=== PATIENT | female | born 1950 | race Caucasian/White ===

== ENCOUNTER 2024-04-03 10:42 | Emergency (ER) | payer OTHER, SELFPAY ==
--- NOTE | ~2024-04-03 | XR_ITS ---
EXAMINATION: XR foot LT min 3V DATE: 04/03/2024 11:24 INDICATION: Left foot pain and swelling at the fifth toe TECHNIQUE: Dorsoplantar, two oblique and lateral views of the left foot were obtained. COMPARISON: None. FINDINGS: 10 degrees lateral and 30 degrees dorsal angulation and one cortical width medial displacement of a t ransverse fracture at the proximal metadiaphyseal region of the left fifth proximal phalanx. Alignmen t is otherwise normal. No other fractures identified. 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 Moderate-sized plantar calcaneal spur. IMPRESSION: 1. Minimally displaced, mildly angulated extra articular fracture near the base of the left fifth pro ximal phalanx. Reviewed, dictated and finalized at location B. IMPRESSION: 1. Minimally displaced, mildly angulated extra articular fracture near the base of the left fifth proximal phalanx.
[2024-04-03 10:50] VITALS: BP 148/66; PULSE 88; RESP 20; TEMP 36.8; O2SAT 95
--- NOTE | 2024-04-03 10:56 | ED.LOWEXIN ---
HPI - Extremity Injury (Lower) General Chief Complaint: Extremity Injury, Lower Stated Complaint: Left pinky toe injury Time Seen by Provider: 04/03/24 10:56 Source: patient, RN notes reviewed and old records reviewed Mode of arrival: ambulatory Limitations: no limitations History of Present Illness HPI Narrative: 74-year-old female to Express Care complaint of left pinky toe pain for 1 day. Patient states that yesterday she kicked something with her left foot in her 's office and had acute onset of pain. Patient unsure what she kicked at that time. Patient endorsing swelling and redness well as pain to digit left foot. Patient denies numbness, tingling, pertinent medical history, allergies. Related Data Home Medications Medication Instructions Recorded Confirmed amlodipine 10 mg tablet 10 mg PO DAILY 04/03/24 04/03/24 atorvastatin 20 mg tablet 20 mg PO DAILY 04/03/24 04/03/24 bupropion HCl 300 mg 24 hr tablet, 300 mg PO DAILY 04/03/24 04/03/24 extended release fluticasone fur. 100 mcg-umeclid 1 inh inhalation DAILY 04/03/24 04/03/24 62.5 mcg-vilant 25 mcg inhalat.powder (Trelegy Ellipta) levothyroxine 75 mcg tablet 75 mcg PO DAILY 04/03/24 04/03/24 losartan 100 mg tablet 100 mg PO DAILY 04/03/24 04/03/24 Allergies Allergy/AdvReac Type Severity Reaction Status Date / Time No Known Allergies Allergy Verified 04/03/24 11:03 Review of Systems Review of Systems: All systems reviewed & are unremarkable except as noted in HPI and below Constitutional: Constitutional: Reports no additional constitutional complaints Eyes: Eyes: Reports no additional eye complaints ENT: Reports system reviewed and no additional complaints, except as documented Cardiovascular: Cardiovascular: Reports no additional cardiovascular complaints, Denies chest pain and Denies dyspnea Respiratory: Respiratory: Reports no additional respiratory complaints, Denies cough and Denies dyspnea Musculoskeletal: Musculoskeletal: Reports as per HPI, Reports arthralgias, Reports joint swelling and Reports limited range of motion Integumentary/Breasts: Comments: Fifth digit left foot Neurologic: Reports as per HPI, Denies numbness, Denies Sensory deficit (Neuro) and Denies tingling Psychiatric: Psychiatric: Reports no additional psychiatric complaints PMFSH Comments At the time of my signature, I reviewed and agree with the nursing past medical, surgical, social, and family history. There is no relevant family history pertinent to the patient complaint. Exam Const: General: cooperative, healthy appearing, no acute distress, alert, uncomfortable and well nourished Nutritional Appearance: well nourished Orientation/consciousness: patient oriented x3 Limitations: no limitations HENMT: Head: normal to inspection Ears: external ears normal Face/Nose/Sinus: Normal external nose present, Normal nares present, normal facial exam, No erythema and No edema Face and sinus: normal facial exam, no erythema and no edema Mouth: Yes Normal oral and palatal mucosa present Eyes: General: appearance normal, both eyes and all related structures Neck: Neck: normal visual inspection, full ROM and no meningeal signs Lymphatic: no lymphadenopathy noted and no lymphedema noted Chest: Chest palpation & inspection: normal inspection of the chest Resp: Effort & Inspection: normal respiratory effort and able to speak in complete sentences Auscultation: clear to auscultation bilaterally Cardio: Jugular venous distension: no JVD Rate: regular rate Rhythm: regular rhythm Back/Spine/Pelvis: Cervical Spine: cervical ROM normal Skin: General skin exam: normal color, no rashes or lesions noted and turgor normal Neuro: General: patient oriented x3, gait normal, moves all extremities and no meningeal signs Speech: normal speech Gait exam (Neuro): Normal gait present Extrem: General: capillary refill normal and normal exam except as noted Le
[2024-04-03 11:03] VITALS: BP 148/66; PULSE 88; RESP 20; TEMP 36.8; O2SAT 95
== END 2024-04-03 11:37 | disposition home or self-care (01) ==
PROVIDERS: Emergency Provider Nurse Practitioner Family
DX: S92.512A Displaced fracture of proximal phalanx of left lesser toe(s), initial encounter for closed fracture (principal); W22.8XXA Striking against or struck by other objects, initial encounter; E78.00 Pure hypercholesterolemia, unspecified; I10 Essential (primary) hypertension; J44.9 Chronic obstructive pulmonary disease, unspecified; E03.9 Hypothyroidism, unspecified
CPT/HCPCS: 73630; 99214; G0463

== ENCOUNTER 2024-10-24 12:05 | Emergency (ER) | payer OTHER, SELFPAY ==
--- NOTE | 2024-10-24 12:14 | ED.FEMALEGU ---
HPI - Female Genitourinary General Chief complaint: Urogenital-Female Stated complaint: poss uti Time Seen by Provider: 10/24/24 12:27 Source: patient and RN notes reviewed Mode of arrival: ambulatory Limitations: no limitations History of Present Illness HPI Narrative: 74-year-old female presents with concern for 1 day history of urine frequency, urgency, dysuria. She reports she took 1 leftover Bactrim pill today. She denies fever, body aches, chills, sweats, abdominal pain, nausea, vomiting. MD elicited complaint: UTI Related Data Home Medications Medication Instructions Recorded Confirmed amlodipine 10 mg tablet 10 mg PO DAILY 04/03/24 04/03/24 atorvastatin 20 mg tablet 20 mg PO DAILY 04/03/24 04/03/24 bupropion HCl 300 mg 24 hr tablet, 300 mg PO DAILY 04/03/24 04/03/24 extended release fluticasone fur. 100 mcg-umeclid 1 inh inhalation DAILY 04/03/24 04/03/24 62.5 mcg-vilant 25 mcg inhalat.powder (Trelegy Ellipta) levothyroxine 75 mcg tablet 75 mcg PO DAILY 04/03/24 04/03/24 losartan 100 mg tablet 100 mg PO DAILY 04/03/24 04/03/24 Allergies Allergy/AdvReac Type Severity Reaction Status Date / Time No Known Allergies Allergy Verified 04/03/24 11:03 Review of Systems Review of Systems: CONSTITUTIONAL: Denies malaise, chills, sweats, or fever. CARDIOVASCULAR: Denies chest pain, palpitations, or edema. RESPIRATORY: Denies cough or dyspnea. GASTROINTESTINAL: Denies abdominal pain, nausea, vomiting, diarrhea GENITOURINARY: Reports dysuria, frequency, urgency Denies flank pain or hematuria. SKIN: Denies rash or itching. MUSCULOSKELETAL: Denies back pain or myalgia. All systems reviewed & are unremarkable except as noted in HPI and below PMFSH Comments At time of signature, agree with nursing past medical, surgical, social and family history. There is no relevant family history pertinent to the presenting complaint Exam Narrative: GENERAL: Well-appearing, well-nourished, and in no acute distress. HEAD: Normocephalic. EYES: PERRLA, conjunctivae clear. NECK: Supple. No lymphadenopathy CHEST: Clear to auscultation. No respiratory distress. HEART: Regular rate and rhythm. ABDOMEN: Soft, nontender upon palpation, nondistended, normal active bowel sounds, no palpable or pulsatile masses, no guarding. No CVA tenderness SKIN: Warm, dry, no rash. NEURO: Alert and oriented x3. PSYCH: Normal mood and affect Course Course Emergency Course: Patient is aware of diagnosis, understands and agrees to treatment plan. Anticipatory guidance given. Patient agrees to follow-up as directed and is aware of reasons to seek care at the emergency department. Portions of this record may have been created with voice recognition software Level of Care: Express Care Visit Vital Signs Vital signs: Reviewed. MDM - Female Genitourinary MDM Narrative Medical decision making narrative: Exam findings and UA show no acute concerns or changes; patient is non-toxic appearing and is in no distress. Patient is appropriate for outpatient treatment and follow-up. Differential Diagnosis Differential diagnosis: Likely urinary tract infection and cystitis Critical Care Time Critical Care Time Critical Care Time: No Discharge Plan Discharge Clinical Impression: Urinary tract infection Patient Disposition: Home, Self-Care Condition: Stable Instructions: Antibiotic Form, Urinary Tract Infection in Older Adults (ED) Additional Instructions: We will send a urine culture to the lab; if the culture identifies an organism that the prescribed antibiotic will not treat, you will receive a phone call from an urgent care staff member and an appropriate antibiotic will be prescribed. -Your symptoms should begin to improve within a day of starting antibiotics. But you should finish all the antibiotic pills you get. Otherwise your infection might come back. -Also recommend: increase water intake. Tylenol/ibuprofen as needed for pain or fever -Follow-up with your primary care provider for urine recheck or seek ER visit if condition worsens with high fever, nausea, vomiting and severe back pain. Prescriptions: New ciprofloxacin HCl 500 mg tablet 500 mg PO Q12H 5 Days Qty: 10 0RF No Action losartan 100 mg tablet 100 mg PO DAILY levothyroxine 75 mcg tablet 75 mcg PO DAILY bupropion HCl 300 mg tablet extended release 24 hr 300 mg PO DAILY atorvastatin 20 mg tablet 20 mg PO DAILY amlodipine 10 mg tablet 10 mg PO DAILY Trelegy Ellipta 100-62.5-25 mcg blister with device 1 inh INHALATION DAILY Follow-up/Referrals: Otilio,Iam James MD [Primary Care Provider] - Time of Disposition: 12:36
[2024-10-24 12:22] VITALS: BP 163/66; PULSE 94; RESP 18; TEMP 36.9; O2SAT 94
[2024-10-24 12:36] LABS: EDUAAPPEAR Cloudy; EDUABILI 1+ (Negative); EDUABLOOD 3+ (Negative); EDUACOLOR1 Amber; EDUAGLUCOSE Negative (Negative); EDUAKETONE Negative (Negative); EDUALEUKO 3+ (Negative); EDUANITRATE Negative (Negative); EDUAPH 6.5; EDUAPROTEIN 3+ (Negative); EDUAUROBILI 0.2
== END 2024-10-24 12:47 | disposition home or self-care (01) ==
PROVIDERS: Emergency Provider Nurse Practitioner; PCP Family Medicine
DX: N39.0 Urinary tract infection, site not specified (principal); E78.00 Pure hypercholesterolemia, unspecified; I10 Essential (primary) hypertension; J44.9 Chronic obstructive pulmonary disease, unspecified; Z86.711 Personal history of pulmonary embolism; E03.9 Hypothyroidism, unspecified
CPT/HCPCS: 81003; 87086; 99213; G0463

== ENCOUNTER 2025-04-16 14:32 | Emergency (ER) | payer OTHER, SELFPAY ==
--- OUTSIDE RECORDS SUMMARY | 2025-04-16 14:39 | XMS_ITS | Encounter Summary ---
Author Organization [facility] Address [address] [place] [address] Care Team Providers Care Product Safety Coordinator Name Role Phone Andrews Arango MD Primary Care Provider [phone] Monica Palomares PTA Unavailable Unavailable Constantino Baptiste MD Unavailable [phone] Jakob Link MD Unavailable Lorna Sanchez PT Unavailable Unavailable Ale Cates PT Unavailable Unavailab Iam Guardado MD Primary Care Provider Tank Lraa MD Unavailable [phone] Dionisio Downey MD Unavailable Reason for Visit * Reason Onset Date Comments Scheduling Appointments 09/17/2021 confirmi ng mammogram appt Encounter Details Date Type Department Care Team (Late st Contact Info) Description 09/17/2021 Telephone [facility] [address] [place] [id number] Tavia Savage, RT Scheduling Appointments ( confirming mammogram appt) Social History Tobacco Use Types Packs/Day Years Used Date Smoking Tobacco: Former Cigarettes Q uit: 2003 Smokeless Tobacco: Former Comments:Smoking History Pac ks/day: 1 Packs Alcohol Use Standard Drinks/Week Comments No 0 (1 standard drink = 0.6 oz pur e alcohol) PHQ-2 Answer Date Recorded PHQ-2 Total Score (If total score is 3 or more points, staff should administer the PHQ-9) 0 06/23/2021 Comments No Sex and Gender Information Value Date Recorded Sex Assigned at Not on file Legal Sex Female 11:49 PM OFFICE SERVICES REPRESENTATIVE Gender Identity Not on file Sexual Orientation Not on file documented as of this encounter Plan of Treatment Upcoming Encounters Date Type Department Care Team (Late st Contact Info) Description 05/29/2025 10:00 AM CDT Hospital Encounter [address] [address] Mariusz Rosenberg, DO [address] [facility] [address] [place] [address] 05/29/2025 10:00 AM CDT - 05/29/2025 10:30 AM CDT Surgery [address] [address] Mariusz Rosenberg, [address] [facility] [address] [place] [address] COLONOSCOPY Scheduled Procedures Name Priority Associated Diagnoses Date/Ti me COLONOSCOPY Family history of colon cancer History of colonic polyps Encounter for screening colonoscopy 05/29/2025 10:00 AM CDT documented as of this encounter Visit Diagnoses Not on filedocumented in this encounter Additional Health Concerns Infection Onset Date Last Indicated Resolved Time COVID: Suspected 06/29/2022 06/29/2022 06/29/2022 12:54 PM CDT COVID: Suspected 01/16/2024 01/16/2024 01/16/2024 5:42 PM OFFICE SERVICES REPRESENTATIVE documented as of this encounter Care Teams Product Safety Coordinator Relationship Specialty Start Date End Date Andrews Arango MD PCP - General 02/18/17 03/19/24 Iam Yañez MD PCP - General Family Medicine 03/20/24 Pace, Monica M., CIVIL SERVICE WORKER Research Assistant Member Physical Therapy 05/12/18 03/19/24 Constantino Baptiste MD [address] [place] [address] DR NANI Alexander [facility] [address] [place] [address] Surgeon Orthopedic Surgery 06/03/18 Jakob Link MD [address] [place] [address] DR NANI Alexander [facility] [address] [place] [address] Consulting Physician Neurology 06/03/18 Lorna Sanchez, PT Physical Therapist Physical Therapy 06/26/18 03/19/24 Ale Cates, PT Physical Therapist Physical Therapy 07/03/18 03/19/24 [place] [address] [facility] [address] [place] [address] Consulting Physician Pulmonary Disease 03/20/24 [place] [address] [place] [address] Referring Physician Dermatology 03/20/24 documented as of this encounter
--- OUTSIDE RECORDS SUMMARY | 2025-04-16 14:39 | XMS_ITS | Encounter Summary ---
Author Organization [facility] Address [address] [place] [address] Care Team Providers Care Topology Teacher Name Role Phone Constantino Baptiste MD Unavailable [phone] Jakob Link MD Unavailable Iam Yañez MD Primary Care Provider Tank Lara MD Unavailable [phone] Dionisio Downey MD Unavailable [phone] Encounter Details Date Type Department Care Team (Late st Contact Info) Description 04/03/2024 Orders Only [facility] Health Information Management [address] [place] [id number] Scanning, Provider Social History Tobacco Use Types Packs/Day Years Used Date Smoking Tobacco: Former Cigarettes 1 40 1 965 - 2005 Smokeless Tobacco: Former Comments:Smoking History Pac ks/day: 1 Packs Alcohol Use Standard Drinks/Week Comments No 0 (1 standard drink = 0.6 oz pur e alcohol) AUDIT-C Answer Date Recorded Q1: How often do you have a drink containing alc ohol? 2-3 times a week 03/20/2024 Q2: How many drinks containi ng alcohol do you have on a typical day when you are drinking? 1 or 2 03/20/2024 Q3: How often do you have si x or more drinks on one occasion? Never 03/20/2024 PHQ-2 Answer Date Recorded PHQ-2 Total Score (If total score is 3 or more points, staff should administer the PHQ-9) 0 03/20/2024 Comments No Sex and Gender Information Value Date Recorded Sex Assigned at Not on file Legal Sex Female 11:49 PM IMAGING TECHNOLOGIST Gender Identity Not on file Sexual Orientation Not on file documented as of this encounter Plan of Treatment Upcoming Encounters Date Type Department Care Team (Late st Contact Info) Description 05/29/2025 10:00 AM CDT Hospital Encounter [facility] [address] [place] [address] Mariusz Rosenberg DO [address] [facility] [address] [place] [address] 05/29/2025 10:00 AM CDT - 05/29/2025 10:30 AM CDT Surgery [address] [address] Mariusz Rosenberg DO [address] [facility] [address] [place] [address] COLONOSCOPY Scheduled Procedures Name Priority Associated Diagnoses Date/Ti me COLONOSCOPY Family history of colon cancer History of colonic polyps Encounter for screening colonoscopy 05/29/2025 10:00 AM CDT documented as of this encounter Procedures Procedure Name Priority Date/Time Associated Diagnosis Comments SCAN - RADIOLOGY/IMAGING 04/03/2024 documented in this encounter Results * SCAN - RADIOLOGY/IMAGING (04/03/2024) Anatomical Region Laterality Modality Other us Provider Scanning Final Result documented in this encounter Visit Diagnoses Not on filedocumented in this encounter Care Teams Topology Teacher Relationship Specialty Start Date End Date Iam Yañez MD [address] [place] [address] DR NANI Alexander [address] [place] [address] PCP - General Family Medicine 03/20/24 Constantino Baptiste MD [address] [place] [address] DR NANI Alexander [address] [place] [address] Surgeon Orthopedic Surgery 06/03/18 aJkob Link MD [address] [place] [address] DR CARDOZA [facility] [address] [place] [address] Consulting Physician Neurology 06/03/18 [place] [address] [facility] [address] [place] [address] Consulting Physician Pulmonary Disease 03/20/24 [place] [address] [place] [address] Referring Physician Dermatology 03/20/24 documented as of this encounter
--- OUTSIDE RECORDS SUMMARY | 2025-04-16 14:39 | XMS_ITS | Encounter Summary ---
Author Organization [facility] Address [address] [place] [address] Phone Care Team Providers Care Coordinate Measuring Equipment Operator Name Role Phone Andrews Arango MD Primary Care Provider [phone] Monica Palomares PROCUREMENT COORDINATOR Unavailable Unavailable Consatntino Baptiste MD Unavailable [phone] Jakob Link MD Unavailable Lorna Sanchez PT Unavailable Unavailable Ale Catse PT Unavailable Unavailab Iam Guardado MD Primary Care Provider Tank Lara MD Unavailable [phone] Dionisio Downey MD Unavailable [phone] Encounter Details Date Type Department Care Team (Late st Contact Info) Description 11/03/2017 Orders Only [facility] ProviderAgnieszka MD [address] [place] [address] Social History Tobacco Use Types Packs/Day Years Used Date Smoking Tobacco: Former Cigarettes Q uit: 11/21/2003 Comments:Smoking History Pac ks/day: 1 Packs Alcohol Use Standard Drinks/Week Comments No 0 (1 standard drink = 0.6 oz pur e alcohol) Comments Unknown Sex and Gender Information Value Date Recorded Sex Assigned at Not on file Legal Sex Female 11:49 PM SHELLFISH MEAT SEPARATOR OPERATOR Gender Identity Not on file Sexual Orientation Not on file documented as of this encounter Plan of Treatment Upcoming Encounters Date Type Department Care Team (Late st Contact Info) Description 05/29/2025 10:00 AM CDT Hospital Encounter [address] [address] Mariusz Rosenberg, [address] [facility] [address] [place] [address] 05/29/2025 10:00 AM CDT - 05/29/2025 10:30 AM CDT Surgery [address] [address] Mariusz Rosenberg, [address] [facility] [address] [place] [address] COLONOSCOPY Scheduled Procedures Name Priority Associated Diagnoses Date/Ti me COLONOSCOPY Family history of colon cancer History of colonic polyps Encounter for screening colonoscopy 05/29/2025 10:00 AM CDT documented as of this encounter Procedures Procedure Name Priority Date/Time Associated Diagnosis Comments DISCHARGE LABORATORY CUMULATIVE REPORT 11/03/2017 12:00 AM SHELLFISH MEAT SEPARATOR OPERATOR DISCHARGE LABORATORY CUMULATIVE REPORT 11/03/2017 12:00 AM SHELLFISH MEAT SEPARATOR OPERATOR documented in this encounter Results * DISCHARGE LABORATORY CUMULATIVE REPORT (11/03/2017 12:00 AM SHELLFISH MEAT SEPARATOR OPERATOR) Narrative 11/03/2017 12:00 AM SHELLFISH MEAT SEPARATOR OPERATOR Ordered by an unspecified provider. us Historical Provider LAB BLOOD ORDERABLES Erica l Result * DISCHARGE LABORATORY CUMULATIVE REPORT (11/03/2017 12:00 AM SHELLFISH MEAT SEPARATOR OPERATOR) Narrative 11/03/2017 12:00 AM SHELLFISH MEAT SEPARATOR OPERATOR Ordered by an unspecified provider. us Historical Provider LAB BLOOD ORDERABLES Erica l Result documented in this encounter Visit Diagnoses Not on filedocumented in this encounter Additional Health Concerns Infection Onset Date Last Indicated Resolved Time COVID: Suspected 09/26/2020 09/26/2020 09/27/2020 6:25 AM SHELLFISH MEAT SEPARATOR OPERATOR Respiratory Infection (ERICKA), contact + droplet Comment:Automatically added due to negative COVID-19 result. 09/27/2020 09/27/2020 10/11/2020 3:0 5 AM SHELLFISH MEAT SEPARATOR OPERATOR COVID: Suspected 06/29/2022 06/29/2022 06/29/2022 12:54 PM CDT COVID: Suspected 01/16/2024 01/16/2024 01/16/2024 5:42 PM SHELLFISH MEAT SEPARATOR OPERATOR documented as of this encounter Care Teams Coordinate Measuring Equipment Operator Relationship Specialty Start Date End Date Andrews Arango MD PCP - General 02/18/17 03/19/24 Iam Yañez MD PCP - General Family Medicine 03/20/24 Monica Palomares, PROCUREMENT COORDINATOR Cloth Washer Back Tender Physical Therapy 05/12/18 03/19/24 Constantino Baptiste MD [address] [facility] [address] NANI Alexander [facility] [address] [place] [address] Surgeon Orthopedic Surgery 06/03/18 Jakob Link MD [address] [place] [address] DR NANI Alexander [facility] [address] [place] [address] Consulting Physician Neurology 06/03/18 Lorna Sanchez, PT Physical Therapist Physical Therapy 06/26/18 03/19/24 Ale Cates, PT Physical Therapist Physical Therapy 07/03/18 03/19/24 [place] [address] [address] [facility] [address] [place] [address] Consulting Physician Pulmonary Disease 03/20/24 [place] [address] [address] [place] [address] Referring Physician Dermatology 03/20/24 documented as of this encounter
--- OUTSIDE RECORDS SUMMARY | 2025-04-16 14:39 | XMS_ITS | Referral Summary ---
Author Organization [facility] Address [address] [place] [address] Care Team Providers Care Sterilization Specialist Name Role Phone Constantino Baptiste MD Unavailable [phone] Jakob Link MD Unavailable Iam Yañez MD Primary Care Provider Tank Lara MD Unavailable [phone] Dionisio Downey MD Unavailable [phone] Encounters Date Type Department Care Team Description 02/04/2025 11:15 AM CDT Office Visit [facility] Primary Care at [address] [place] [id number] Iam Yañez MD Pre-op evaluation (Primary Dx); Low bone mass; Morbid obesity with BMI of 40.0-44.9, adult (HCC); MOLLY on CPAP; Coronary artery calcification seen on CT scan; Benign hypertension; Chronic respiratory failure with hypoxia (HCC); Mixed hyperlipidemia; Impaired fasting glucose; Acquired hypothyroidism 01/30/2025 Telephone [facility] Primary Care at [address] [place] [id number] Iam Yañez MD Referral Request (Dermatology and Pulmonology ) 01/30/2025 Telephone [facility] Primary Care at [address] [phone] Iam Yañez MD Medical Question/Miscellaneous 01/29/2025 Results Follow-Up [facility] Primary Care at [address] [phone] Iam Yañez MD Thyroid Function [place], Lipid panel, Hemoglobin A1c, Additional followed-up results: 4 01/29/2025 8:50 AM CDT Lab [address] [phone] Acquired hypothyroidism; Mixed hyperlipidemia; Impaired fasting glucose; Benign hypertension 01/28/2025 Telephone [facility] Primary Care at [address] [phone] Iam Yañez MD from Last 3 Months Allergies No known active allergies Medications multivit [id number] A-calcium (THERA-M) 9 mg iron-400 mcg tabletIndicatio ns:Vitamin Deficiency Prevention Take 1 tablet by mouth daily kyani vitamins Active cyanocobalamin (Vitamin B-12) 1,000 mcg tabletIndicatio ns:Prevention of Vitamin B12 Deficiency Take 1 tablet (1,000 mcg total) by mouth daily. 30 tablet 8 Active aspirin 81 mg chewable tablet Take 1 tablet (81 mg total) by mouth daily Active albuterol 1.25 mg/3 mL nebulizer solution Take 3 mL (1.25 mg total) by nebulization every 6 (six) hours as needed for wheezing 75 mL 11 0 Active albuterol HFA (ProAir HFA) 90 mcg/actuation inhaler Inhale 2 puffs every 8 (eight) hours as needed for wheezing 8.5 each 11 2 Active amLODIPine (NORVASC) 10 mg tablet TAKE 1 TABLET BY MOUTH EVERY DAY 90 tablet 3 4 Active losartan (COZAAR) 100 mg tablet TAKE 1 TABLET BY MOUTH EVERY DAY 90 tablet 3 4 Active levothyroxine (SYNTHROID) 75 mcg tablet TAKE 1 TABLET BY MOUTH EVERY DAY 90 tablet 2 4 Active atorvastatin (LIPITOR) 20 mg tablet TAKE 1 TABLET BY MOUTH EVERY DAY 90 tablet 2 4 Active calcium carbonate-vitam in D3 1,500 mg (600mg elemental) -800 unit per tabletIndicatio ns:Low bone mass Take 1 tablet by mouth 2 (two) times a day 180 tablet 3 4 Active buPROPion XL (WELLBUTRIN XL) 300 mg 24 hr tabletIndicatio ns:SUNNY (generalized anxiety disorder),Recur rent major depressive disorder, in full remission TAKE 1 TABLET (300 MG TOTAL) BY MOUTH EVERY MORNING. 100 tablet 1 5 03/07/20 26 Active Active Problems Problem Noted Date Diagnosed Date Encounter for screening colonoscopy 11/27/2024 Low bone mass 10/26/2024 Assessment & Plan (02/04/2025 11:47 AM CDT): DEXA 11/13 FINDINGS: AP LUMBAR SPINE L1-L2: T-score is 1.1 LEFT HIP: T-score is -0.6 Femoral neck: T-score is -1.9 - recent diagnosis - no recent DEXA besides this one - discussed management options, vitaminD and Calcium supplementation, strength/resistance based exercises Coronary artery calcification seen on CT scan Assessment & Plan (02/04/2025 11:40 AM CDT): - asymptomatic - coronary artery calcification seen in past CT lung cancer screenings - history of tobacco smoking, hypertension, dyslipidemia - we would like to have evaluation for coronary artery calcifications - s/p CT coronary calcium scoring = score of 508 - s/p stress test 08/2024 with reassuring findings - Already on statin therapy with good LDL control, on aspirin 81 mg daily - Former smoker, quit in remote past, continue with abstinence - continue current management, if further concern can be evaluated by cardiology Lab Results Component Value Date LDLCALC 67 01/29/2025 CT OF THE HEART W/O CONTRAST - CORONARY CALCIUM 08/14 Calcium score of 508. Your patient's [place] Coronary Calcium score is 508. This total Coronary Calcium score of 508 places this patient in the 86th percentile for an apparently healthy person of the same age and gender. In general, the lower the percentile rank, the lower the cardiac risk. This percentile rank assumes the absence of symptoms and does not account for risk factors or for the number of calcified vessels. Incidental Findings: None The Calcium Score should be interpreted in the context of several factors: Clinical decision-making requires the Calcium Score to be weighed along with other factors, i.e. the number of calcified vessels, the patient's age, gender, symptoms and risk factors. Normal score for any age is ideally zero. The Calcium Score has greater significance when it is above the 75th percentile of age and sex group, or if calcium is present in 2 or more vessels. A score of zero indicates no coronary artery calcification and this implies the absence of significant angiographic coronary narrowing in 99% of cases. It does not absolutely rule out the presence of soft non-calcified plaque, especially in younger patients and those who smoke heavily. Lab Results Component Value Date LDLCALC 72 07/30/2024 Myocardial perfusion imaging with Sestamibi SPECT at rest and post regadenoson (Lexiscan) infusion. 09/13 CONCLUSIONS: 1. Negative Lexiscan pharmacologic stress test for chest pain or EKG changes. 2. Nuclear images are pending and they will be reported separately. NM MPI SPECT (REST AND/OR STRESS) MULTIPLE STUDIES 09/13 IMPRESSION: No definite scintigraphic evidence of myocardial ischemia. Mild diffuse decreased perfusion in the anterior wall at both rest and stress is favored to represent breast attenuation artifact. No prone images were obtained. Normal left ventricular ejection fraction of 71 % poststress. Normal wall motion. Assessment & Plan (08/10/2024 3:34 AM CDT): - asymptomatic - coronary artery calcification seen in past CT lung cancer screenings - history of tobacco smoking, hypertension, dyslipidemia - we would like to have evaluation for coronary artery calcifications - order placed for CT coronary calcium scoring Primary osteoarthritis of right knee 08/10/2024 Assessment & Plan (08/10/2024 3:38 AM CDT): new, subacute condition, occurence in 2-3 months ago, after a fall, causing intermittent pain and swelling, obtaining XR of right knee with results updated below X-ray shows advanced arthritic changes in the right knee, recommend surgical evaluation for potential right knee replacement she has had left knee replacement surgery in the past, if she would like to try steroid injections to defer that she will be offered the option. XR KNEE RIGHT 3 VIEWS 08/14 REASON FOR STUDY: new, subacute condition, occurence in 2-3 months ago, after a fall, causing intermittent pain and swelling new, subacute condition, occurence in 2-3 months ago, after a fall, causing intermittent pain and swelling Pain anterior/medial FINDINGS: Three views of the right knee are submitted for interpretation. No prior examination is available for comparison. Severe medial compartment predominant tricompartmental right knee osteoarthritis is present. No effusion or fracture. Atherosclerotic vascular calcifications are present. IMPRESSION: Severe medial compartment predominant tricompartmental right knee osteoarthritis. ACP (advance care planning) 08/10/2024 Overview (08/10/2024): Full code Assessment & Plan (08/10/2024 3:40 AM CDT): Advance Care Planning Advance Care Planning Conversation Pertinent diagnoses: Personal history of tobacco use, morbid obesity, hyperlipidemia, impaired fasting glucose, coronary artery calcification seen on CT scan, hypertension The patient and/or family consented to a voluntary Advance Care Planning conversation. Individuals present for the conversation: patient Summary of the conversation: Full code, does not want prolonged life support Outcome of the conversation and documents completed (select all that apply): CHANGE code status to FULL CODE I spent 7 minutes providing separately identifiable ACP services with the patient and/or surrogate decision maker in a voluntary, in-person conversation discussing the patient's wishes and goals as detailed in the above note. Iam Yañez MD Right knee pain 08/08/2024 Assessment & Plan (08/10/2024 3:37 AM CDT): new, subacute condition, occurence in 2-3 months ago, after a fall, causing intermittent pain and swelling, obtaining XR of right knee with results updated below X-ray shows advanced arthritic changes in the right knee, recommend surgical evaluation for potential right knee replacement she has had left knee replacement surgery in the past, if she would like to try steroid injections to defer that she will be offered the option. XR KNEE RIGHT 3 VIEWS 08/14 REASON FOR STUDY: new, subacute condition, occurence in 2-3 months ago, after a fall, causing intermittent pain and swelling new, subacute condition, occurence in 2-3 months ago, after a fall, causing intermittent pain and swelling Pain anterior/medial FINDINGS: Three views of the right knee are submitted for interpretation. No prior examination is available for comparison. Severe medial compartment predominant tricompartmental right knee osteoarthritis is present. No effusion or fracture. Atherosclerotic vascular calcifications are present. IMPRESSION: Severe medial compartment predominant tricompartmental right knee osteoarthritis. Dependence on continuous supplemental oxygen Assessment & Plan (04/02/2024 11:22 AM CDT): - chronic, stable - Patient remains compliant with her oxygen therapy in uses 2 L at rest and 4 with ambulation. - has known COPD and MOLLY on CPAP therapy - also has known Morbid obesity - continue current management History of left knee replacement 03/20/2024 Personal history of tobacco use 03/20/2024 Overview (02/04/2025): Quit 2004 Assessment & Plan (08/08/2024 11:17 AM CDT): Social History Tobacco Use Smoking Status Former Current packs/day: 0.00 Average packs/day: 1 pack/day for 40.0 years (40.0 ttl pk-yrs) Types: Cigarettes Start date: 1964 Quit date: 2004 Years since quittin.7 Smokeless Tobacco Former Tobacco Comments Smoking History Packs/day: 1 Packs - continue with abstinence from smoking - follows with Pulmonology for her COPD - Dr. Lara - On Trelegy from Pulmonology - quit smoking in 2004 when her mom from lung cancer - who was also smoker, parents, siblings were smokers LDCT 05/2019 FINDINGS: The lungs are well expanded and clear. There are moderate emphysematous changes in the lungs. No evidence of a pulmonary nodule or mass lesion. No evidence of a pulmonary infiltrate or pleural effusion. The heart size is normal. There is coronary artery calcification. No evidence of mediastinal adenopathy. There are mild atherosclerotic changes in the thoracic aorta. Limited scans through the upper abdomen are unremarkable. IMPRESSION: 1. Lung-RADS category 1, Negative. Continue annual screening with LDCT in 12 months. 2. Moderate emphysematous changes in the lungs. 3. Coronary artery disease and aortic atherosclerosis. Assessment & Plan (03/20/2024 1:11 PM CDT): Social History Tobacco Use Smoking Status Former Current packs/day: 0.00 Average packs/day: 1 pack/day for 40.0 years (40.0 ttl pk-yrs) Types: Cigarettes Start date: 1965 Quit date: 2004 Years since quittin.3 Smokeless Tobacco Former Tobacco Comments Smoking History Packs/day: 1 Packs - continue with abstinence from smoking - follows with Pulmonology for her COPD - quit smoking in 2004 when her mom from lung cancer - who was also smoker, parents, siblings were smokers LDCT 05/2019 FINDINGS: The lungs are well expanded and clear. There are moderate emphysematous changes in the lungs. No evidence of a pulmonary nodule or mass lesion. No evidence of a pulmonary infiltrate or pleural effusion. The heart size is normal. There is coronary artery calcification. No evidence of mediastinal adenopathy. There are mild atherosclerotic changes in the thoracic aorta. Limited scans through the upper abdomen are unremarkable. IMPRESSION: 1. Lung-RADS category 1, Negative. Continue annual screening with LDCT in 12 months. 2. Moderate emphysematous changes in the lungs. 3. Coronary artery disease and aortic atherosclerosis. Morbid obesity with BMI of 40.0-44.9, adult 02/21 Assessment & Plan (02/04/2025 11:48 AM CDT): Wt Readings from Last 3 Encounters: 02/04/25 98.7 kg (217 lb 9.6 oz) 08/08/24 97.8 kg (215 lb 8 oz) 04/10/24 98.6 kg (217 lb 6.4 oz) Body mass index is 40.56 kg/m . - chronic, Stable, not at goal of <30 bmi -Discussed recommendations for exercise at least 30 minutes moderate to vigorous exercise as tolerated most days of the week. (minimum 150 minutes weekly) -Discussed importance of well-balanced diet. Assessment & Plan (08/08/2024 10:59 AM CDT): Wt Readings from Last 3 Encounters: 08/08/24 97.8 kg (215 lb 8 oz) 04/10/24 98.6 kg (217 lb 6.4 oz) 03/31/24 97.8 kg (215 lb 9.6 oz) Body mass index is 40.17 kg/m . -Stable, not at goal of <30 bmi -Discussed recommendations for exercise at least 30 minutes moderate to vigorous exercise as tolerated most days of the week. (minimum 150 minutes weekly) -Discussed importance of well-balanced diet. Assessment & Plan (04/10/2024 7:20 PM CDT): Wt Readings from Last 3 Encounters: 04/10/24 98.6 kg (217 lb 6.4 oz) 03/31/24 97.8 kg (215 lb 9.6 oz) 03/20/24 97.8 kg (215 lb 9.6 oz) Body mass index is 40.52 kg/m . -Stable, not at goal of <30 bmi -Discussed recommendations for exercise at least 30 minutes moderate to vigorous exercise as tolerated most days of the week. (minimum 150 minutes weekly) -Discussed importance of well-balanced diet. Assessment & Plan (03/20/2024 1:13 PM CDT): Wt Readings from Last 3 Encounters: 03/20/24 97.8 kg (215 lb 9.6 oz) 09/20/23 96.6 kg (213 lb) 03/15/23 98.2 kg (216 lb 9.6 oz) Body mass index is 38.2 kg/m . - chronic condition, not at goal - BMI Follow-up includes: nutrition counseling, exercise counseling and education provided - Recommend to exercise at least 30 minutes moderate to vigorous exercise most days of the week. (minimum 150 minutes weekly) - comorbidities - hypertension, hyperlipidemia, Tinnitus of both ears 10/23/2021 Assessment & Plan (05/17/2022 11:07 AM CDT): Hearing test - Dr. Pride Avoid ear cleaning techniques Nasal saline spray (Simply saline, [employer], [place], Bob White) 2 second sprays or 2 squeezes into each nostril while looking down over the sink, do not need to sniff in daily Cancel out ringing with loud fan or radio Assessment & Plan (02/24/2022 9:03 AM CDT): ENT referral as requested. Assessment & Plan (10/23/2021 3:28 PM JUNIOR RECRUITER): Lipoflavonoids recommended. Hearing protection recommended. Audiology evaluation when ready. Masking agents such as white noise machine, music, chewing gum recommended. Chronic respiratory failure with hypoxia 020 Overview (02/04/2025): Follows with Pulmonology, on supplemental oxygen Assessment & Plan (02/04/2025 11:45 AM CDT): - chronic, stable - Patient remains compliant with her oxygen therapy in uses 2 L at rest and 4 with ambulation. - perplexing, states her oxygen does well when she is active or doing something and worse when she is not exerting herself, siting, sleeping times - has known COPD and MOLLY on CPAP therapy - currently on Trelegy inhaler, albuterol PRN as well - followed and managed by Pulmonology - also has known Morbid obesity, Body mass index is 40.56 kg/m . - continue current management Assessment & Plan (08/10/2024 3:44 AM CDT): - chronic, stable - Patient remains compliant with her oxygen therapy in uses 2 L at rest and 4 with ambulation. - has known COPD and MOLLY on CPAP therapy - followed and managed by Pulmonology - also has known Morbid obesity - continue current management Assessment & Plan (04/02/2024 11:21 AM CDT): - chronic, stable - Patient remains compliant with her oxygen therapy in uses 2 L at rest and 4 with ambulation. - has known COPD and MOLLY on CPAP therapy - also has known Morbid obesity - continue current management Assessment & Plan (08/26/2022 10:55 AM CDT): Patient remains compliant with her oxygen therapy in uses 2 L at rest and 4 with ambulation. Assessment & Plan (12/10/2020 9:23 AM JUNIOR RECRUITER): Patient is compliant with her oxygen and requires 2 L at rest and 4 with ambulation. She also requires oxygen while sleeping. She requires a portable oxygen concentrator to help with ADLs and with activities outside of the house. Assessment & Plan (11/07/2020 5:22 PM JUNIOR RECRUITER): After nebulizer treatment patient's resting pulse oximetry readings came up to 91% on room air. Patient is aware that she qualifies for oxygen at 2 liters/minute at rest and 4 liters/minute with ambulation. She is to rest over the weekend and avoid heavy exertion. She should use her albuterol nebulizer every 6 hours. Continue Trelegy. Pulmonary referral placed. If breathing would worsen over the weekend, recommend ER evaluation. Family history of colon cancer 10/17/2019 Overview (10/17/2019): Added automatically from request for surgery [id number] History of colonic polyps 10/17/2019 Overview (10/17/2019): Added automatically from request for surgery [id number] Gout 10/05/2019 Assessment & Plan (03/20/2024 12:44 PM CDT): Medrol Dosepak. Dietary restrictions discussed, weight loss recommended. Avoid alcohol. Consideration of allopurinol if has another attack within 6 months. ..................... - not on any medications - most recent uric acid as shown below Lab Results Component Value Date URICACID 4.9 10/20/2016 Assessment & Plan (10/05/2019 4:42 PM JUNIOR RECRUITER): Medrol Dosepak. Dietary restrictions discussed, weight loss recommended. Avoid alcohol. Consideration of allopurinol if has another attack within 6 months. Preventative health care 10/11/2018 Assessment & Plan (08/10/2024 3:38 AM CDT): - New or chronic worsening conditions: Right knee pain --> advanced right knee osteoarthritis - Mental health: no significant psychiatric/mental health conditions affecting her day to day functioning - Dental health: Recommend regular dental care and cleaning. Discussed importance of regular tooth brushing, flossing, and dental visits. - Nutrition: Recommend moderation in sodium/caffeine intake, saturated fat and cholesterol, caloric balance, sufficient intake of fresh fruits, vegetables - Exercise: Recommend to exercise at least 30 minutes moderate to vigorous exercise most days of the week. (minimum 150 minutes weekly) - Immunizations: Age and sex appropriate immunizations reviewed and offered - Cervical Cancer screening: not indicated - Breast Cancer screening: Up to date - Colon cancer screening: Up to date - Lung cancer screening: not applicable any more, follows with Pulmonology as well - Bone desnity/osteoporosis screening:Recommended, due and has DEXA test scheduled - control: not applicable Assessment & Plan (03/15/2023 1:37 PM CDT): Flu shot each August. Tetanus booster every 10 years. Shingrix recommended. Mammogram yearly. Colonoscopy due November 2024. Will see her back in 6 months with lab sooner if needed. Assessment & Plan (02/24/2022 9:02 AM CDT): Shot each August. Tetanus booster every 10 years. Second COVID booster recommended when due. Shingrix recommended. Mammogram yearly. Colonoscopy due November 2024. Will see her back in 6 months with lab sooner if needed. Assessment & Plan (12/10/2020 9:24 AM JUNIOR RECRUITER): We discussed a comprehensive list of medical conditions and proposed recommendations for each. We discussed the importance of increased exercise, fall prevention, proper nutrition, and suggested joining [facility] to accomplish most of these goals. Patient was given an age appropriate Medicare preventive services checklist. Please see the EMR regarding details of their health risk assessment and preventive services checklist. Will see her back in 6 months with lab sooner if needed. Assessment & Plan (10/15/2019 6:08 PM JUNIOR RECRUITER): We discussed a comprehensive list of medical conditions and proposed recommendations for each. We discussed the importance of increased exercise, fall prevention, proper nutrition, and suggested joining [facility] to accomplish most of these goals. Patient was given an age appropriate Medicare preventive services checklist. Please see the EMR regarding details of their health risk assessment and preventive services checklist. Will see her back in 6 months with lab sooner if needed. Assessment & Plan (10/11/2018 2:33 PM JUNIOR RECRUITER): We discussed a comprehensive list of medical conditions and proposed recommendations for each. We discussed the importance of increased exercise, fall prevention, proper nutrition, and suggested joining [facility] to accomplish most of these goals. Patient was given an age appropriate Medicare preventive services checklist. Please see the EMR regarding details of their health risk assessment and preventive services checklist. Will see her back in 6 months with lab sooner if needed. Low vitamin B12 level 10/11/2018 Assessment & Plan (08/08/2024 10:58 AM CDT): - chronic condition, stable status - currently on Vitamin B12 100 mcg daily oral supplementation - continue current management - recheck lab, order placed Lab Results Component Value Date VITB12 1,576 (H) 07/30/2024 Assessment & Plan (03/20/2024 1:08 PM CDT): - chronic condition, stable status - currently on Vitamin B12 100 mcg daily oral supplementation - continue current management - recheck lab, order placed Lab Results Component Value Date VITB12 381 09/29/2018 Assessment & Plan (09/20/2023 2:30 PM CDT): Continue B12 supplementation check levels yearly Assessment & Plan (03/15/2023 1:36 PM CDT): Continue B12 supplementation check level yearly. Assessment & Plan (08/26/2022 10:54 AM CDT): Continue B12 supplementation check level in 1 year. Assessment & Plan (02/24/2022 9:02 AM CDT): Continue supplementation and check level in 1 year. Assessment & Plan (06/23/2021 11:38 AM CDT): Continue B12 supplementation and check levels before next visit. Assessment & Plan (12/10/2020 9:23 AM JUNIOR RECRUITER): Continue supplementation and check level in 1 year. Assessment & Plan (10/15/2019 6:07 PM JUNIOR RECRUITER): Continue current dose of B12 and check levels in 1 year. Assessment & Plan (10/11/2018 2:33 PM JUNIOR RECRUITER): Continue supplementation. Nocturnal hypoxemia 07/10/2018 Assessment & Plan (03/20/2024 1:09 PM CDT): - Continue oxygen 2 liters/minute by nasal cannula while sleeping due to nocturnal hypoxemia documented on her initial sleep study. - she continues to use CPAP device on a nightly basis Assessment & Plan (07/10/2018 11:56 AM CDT): Continue oxygen 2 liters/minute by nasal cannula while sleeping due to nocturnal hypoxemia documented on her initial sleep study. MOLLY on CPAP 06/08/2018 Assessment & Plan (02/04/2025 11:53 AM CDT): - Chronic condition, well controlled - Had very loud snoring and apneic episodes - Uses CPAP regularly - Connects her oxygen at night to her CPAP - Patient is compliant with the CPAP machine and gets symptomatic relief. - continue with current CPAP use nightly PSG 05/2018 IMPRESSION The above polysomnography confirms evidence of Moderate obstructive sleep apnea syndrome with an AHI of 25.4. 8 minutes oxygen saturations less than 88%. - Consider Positive Airway Pressure (PAP) devices such as continuous PAP (CPAP), auto-adjusting PAP (APAP), and bi-level PAP (Bi-PAP). - CPAP titration to determine optimal pressure required to alleviate sleep disordered breathing - Sleep hygiene should be reviewed to assess factors that may improve sleep quality. - Weight management and regular exercise should be initiated or continued - Avoid alcohol sedatives and other REPAIR CAMERAMAN depression that may worsen sleep apnea and disrupt normal sleep architecture Assessment & Plan (03/20/2024 12:39 PM CDT): - Chronic condition, controlled - Had very loud snoring and apneic episodes - Uses CPAP regularly - Connects her oxygen at night to her CPAP - Patient is compliant with the CPAP machine and gets symptomatic relief. - Continue current management PSG 05/2018 IMPRESSION The above polysomnography confirms evidence of Moderate obstructive sleep apnea syndrome with an AHI of 25.4. 8 minutes oxygen saturations less than 88%. - Consider Positive Airway Pressure (PAP) devices such as continuous PAP (CPAP), auto-adjusting PAP (APAP), and bi-level PAP (Bi-PAP). - CPAP titration to determine optimal pressure required to alleviate sleep disordered breathing - Sleep hygiene should be reviewed to assess factors that may improve sleep quality. - Weight management and regular exercise should be initiated or continued - Avoid alcohol sedatives and other REPAIR CAMERAMAN depression that may worsen sleep apnea and disrupt normal sleep architecture Assessment & Plan (09/20/2023 2:31 PM CDT): Patient is compliant with the CPAP machine and gets symptomatic relief. Assessment & Plan (03/15/2023 1:35 PM CDT): Patient is compliant with the CPAP machine and gets symptomatic relief. Assessment & Plan (08/26/2022 10:54 AM CDT): Patient is compliant with the CPAP machine and gets symptomatic relief. Assessment & Plan (02/24/2022 9:02 AM CDT): Patient is compliant with the CPAP machine and gets symptomatic relief. Assessment & Plan (06/23/2021 11:38 AM CDT): Patient is compliant with the CPAP machine and gets symptomatic relief. Assessment & Plan (12/10/2020 9:22 AM JUNIOR RECRUITER): Patient is compliant with the CPAP machine and gets symptomatic relief. Assessment & Plan (06/09/2020 9:27 AM CDT): Patient is compliant with the CPAP machine and gets symptomatic relief. Assessment & Plan (10/15/2019 6:07 PM JUNIOR RECRUITER): Patient is compliant with the CPAP machine and gets symptomatic relief. Assessment & Plan (05/13/2019 8:29 PM CDT): Patient is compliant with the CPAP machine and gets symptomatic relief. Assessment & Plan (10/11/2018 2:32 PM JUNIOR RECRUITER): Patient is compliant with the CPAP machine and gets symptomatic relief. Assessment & Plan (07/10/2018 11:55 AM CDT): Patient should schedule her CPAP titration study. If not covered by insurance, would recommend auto PAP. Continue oxygen at night due to hypoxemia documented on her initial sleep study. Impaired fasting glucose 11/17/2017 Assessment & Plan (02/04/2025 11:50 AM CDT): - chronic condition, stable status/improved and resolved - has known obesity - will continue monitoring - not on any medication for this - continue current management Lab Results Component Value Date HGBA1C 5.6 01/29/2025 HGBA1C 5.9 (H) 07/30/2024 HGBA1C 5.9 (H) 03/12/2024 Lab Results Component Value Date LDLCALC 67 01/29/2025 CREATININE 1.07 01/29/2025 Assessment & Plan (08/08/2024 11:09 AM CDT): - chronic condition, stable status - has known obesity - will continue monitoring - not on any medication for this - continue current management Lab Results Component Value Date HGBA1C 5.9 (H) 07/30/2024 HGBA1C 5.9 (H) 03/12/2024 HGBA1C 5.7 (H) 09/12/2023 Lab Results Component Value Date LDLCALC 72 07/30/2024 CREATININE 0.84 07/30/2024 Assessment & Plan (03/20/2024 12:40 PM CDT): - chronic condition, stable status - has known obesity - will continue monitoring - not on any medication for this - continue current management Lab Results Component Value Date HGBA1C 5.9 (H) 03/12/2024 HGBA1C 5.7 (H) 09/12/2023 HGBA1C 5.5 03/08/2023 Lab Results Component Value Date LDLCALC 63 03/12/2024 CREATININE 0.95 03/12/2024 Assessment & Plan (09/20/2023 2:30 PM CDT): Patient should reduce sugar and carbs, increase exercise, maintain proper body weight, and will check an A1c once or twice yearly. Assessment & Plan (03/15/2023 1:36 PM CDT): Patient should reduce sugar and carbs, increase exercise, maintain proper body weight, and will check an A1c once or twice yearly. Assessment & Plan (08/26/2022 10:55 AM CDT): Patient should reduce sugar and carbs, increase exercise, maintain proper body weight, and will check an A1c once or twice yearly. Assessment & Plan (02/24/2022 9:02 AM CDT): Patient should reduce sugar and carbs, increase exercise, maintain proper body weight, and will check an A1c once or twice yearly. Assessment & Plan (06/23/2021 11:37 AM CDT): Patient should reduce sugar and carbs, increase exercise, maintain proper body weight, and will check an A1c once or twice yearly. Assessment & Plan (12/10/2020 9:23 AM JUNIOR RECRUITER): Patient should reduce sugar and carbs, increase exercise, maintain proper body weight, and will check an A1c once or twice yearly. Assessment & Plan (06/09/2020 9:28 AM CDT): Patient should reduce sugar and carbs, increase exercise, maintain proper body weight, and will check an A1c once or twice yearly. Assessment & Plan (10/15/2019 6:07 PM JUNIOR RECRUITER): Patient should reduce sugar and carbs, increase exercise, maintain proper body weight, and will check an A1c once or twice yearly. Assessment & Plan (05/13/2019 8:29 PM CDT): Patient should reduce sugar and carbs, increase exercise, maintain proper body weight, and will check an A1c once or twice yearly. Assessment & Plan (10/11/2018 2:32 PM JUNIOR RECRUITER): Patient should reduce sugar and carbs, increase exercise, maintain proper body weight, and will check an A1c once or twice yearly. Pulmonary nodules 05/19/2017 Overview (12/10/2020): CT chest 2018 without suspicious lesions. She quit smoking 2004 thus further low dose ct chest not indicated Assessment & Plan (05/13/2019 8:31 PM CDT): Repeat CT chest May 2019 and call back for results. Assessment & Plan (10/11/2018 9:06 AM JUNIOR RECRUITER): Repeat CT chest march 2019 Assessment & Plan (11/17/2017 9:44 AM JUNIOR RECRUITER): Repeat CT chest March 2018. Assessment & Plan (05/19/2017 4:10 PM CDT): Due for repeat low-dose CT scan of the chest in September. Major depressive disorder 05/19/2017 Assessment & Plan (08/08/2024 11:10 AM CDT): - chronic condition, stable status - hx of anxiety and depression - onset many years ago when her mother - former smoker 40 pk/years, quit smoking 25 years ago - currently on Wellbutrin XL 300 mg daily - continue current management with changes made above Assessment & Plan (03/20/2024 12:40 PM CDT): - chronic condition, stable status - hx of anxiety and depression - onset many years ago when her mother - currently on Wellbutrin SR 150 mg BID --> change to Wellbutrin Xl 300 mg daily - continue current management with changes made above Assessment & Plan (09/20/2023 2:30 PM CDT): Well controlled on bupropion Assessment & Plan (08/26/2022 10:54 AM CDT): Well controlled on bupropion Assessment & Plan (12/10/2020 9:22 AM JUNIOR RECRUITER): Well controlled on her bupropion. Assessment & Plan (06/09/2020 9:28 AM CDT): Mood is stable and well controlled on her bupropion. Assessment & Plan (10/15/2019 6:07 PM JUNIOR RECRUITER): Well controlled on bupropion. Assessment & Plan (05/13/2019 8:29 PM CDT): Stable on her bupropion. Assessment & Plan (11/17/2017 9:44 AM JUNIOR RECRUITER): Well controlled on bupropion. Assessment & Plan (05/19/2017 4:08 PM CDT): Well controlled on her bupropion. SUNNY (generalized anxiety disorder) 04/30/2014 Assessment & Plan (08/08/2024 11:05 AM CDT): - chronic condition, stable status - hx of anxiety and depression - onset many years ago when her mother - currently on Wellbutrin XL 300 mg daily - continue current management with changes made above Assessment & Plan (03/20/2024 12:31 PM CDT): - chronic condition, stable status - hx of anxiety and depression - onset many years ago when her mother - currently on Wellbutrin SR 150 mg BID --> change to Wellbutrin Xl 300 mg daily - continue current management with changes made above Assessment & Plan (05/19/2017 4:08 PM CDT): Stable without medication. Benign hypertension 04/30/2014 Assessment & Plan (02/04/2025 11:58 AM CDT): Blood Pressure Management BP Readings from Last 3 Encounters: 02/04/25 108/58 08/08/24 140/80 04/10/24 130/70 Chronic condition Status - is adequately controlled. Current medications are: Amlodipine 10 mg daily, Losartan 100 mg daily Patient is compliant with medications. Patient denies any side effects or adverse side effects from the medication/s. Follow a low salt diet Monitor blood pressure regularly at home The current medical regimen is effective; continue present plan and medications. The ASCVD Risk score (Alexandria PORTER, et al., 2019) failed to calculate for the following reasons: The valid total cholesterol range is 130 to 320 mg/dL Lab Results Component Value Date LDLCALC 67 01/29/2025 Lab Results Component Value Date GLUCOSE 106 01/29/2025 CALCIUM 9.1 01/29/2025 SODIUM 139 01/29/2025 POTASSIUM 4.7 01/29/2025 CO2 26 01/29/2025 CHLORIDE 104 01/29/2025 BUNSER 21 01/29/2025 CREATININE 1.07 01/29/2025 Assessment & Plan (08/08/2024 10:58 AM CDT): Blood Pressure Management BP Readings from Last 3 Encounters: 08/08/24 140/80 04/10/24 130/70 03/31/24 120/62 Chronic condition Status - is adequately controlled. Current medications are: Amlodipine 10 mg daily, Losartan 100 mg daily Patient is compliant with medications. Patient denies any side effects or adverse side effects from the medication/s. Follow a low salt diet Monitor blood pressure regularly at home Continue current management unless change made above The 10-year ASCVD risk score (Alexandria PORTER, et al., 2019) is: 24% Values used to calculate the score: Age: 74 years Sex: Female Is Non- : No Diabetic: No Tobacco smoker: No Systolic Blood Pressure: 140 mmHg Is BP treated: Yes HDL Cholesterol: 49 mg/dL Total Cholesterol: 147 mg/dL Lab Results Component Value Date LDLCALC 72 07/30/2024 Lab Results Component Value Date GLUCOSE 105 07/30/2024 CALCIUM 9.1 07/30/2024 SODIUM 140 07/30/2024 POTASSIUM 3.9 07/30/2024 CO2 27 07/30/2024 CHLORIDE 102 07/30/2024 BUNSER 14 07/30/2024 CREATININE 0.84 07/30/2024 Assessment & Plan (03/20/2024 12:28 PM CDT): Blood Pressure Management BP Readings from Last 3 Encounters: 03/20/24 130/76 01/16/24 120/80 09/20/23 128/80 Chronic condition Status - is adequately controlled. Current medications are: Amlodipine 10 mg daily, Losartan 100 mg daily Patient is compliant with medications. Patient denies any side effects or adverse side effects from the medication/s. Follow a low salt diet Monitor blood pressure regularly at home Continue current management unless change made above The ASCVD Risk score (Alexandria PORTER, et al., 2019) failed to calculate for the following reasons: The valid total cholesterol range is 130 to 320 mg/dL Lab Results Component Value Date LDLCALC 63 03/12/2024 Lab Results Component Value Date GLUCOSE 101 03/12/2024 CALCIUM 9.8 03/12/2024 SODIUM 141 03/12/2024 POTASSIUM 4.4 03/12/2024 CO2 26 03/12/2024 CHLORIDE 103 03/12/2024 BUNSER 17 03/12/2024 CREATININE 0.95 03/12/2024 Assessment & Plan (09/20/2023 2:30 PM CDT): Blood pressure is well controlled on amlodipine, losartan Assessment & Plan (03/15/2023 1:37 PM CDT): Well controlled on the current regimen. Avoidance of salt, proper body weight, and routine exercise recommended. Assessment & Plan (08/26/2022 10:55 AM CDT): Well controlled on the current regimen. Avoidance of salt, proper body weight, and routine exercise recommended. Assessment & Plan (02/24/2022 9:02 AM CDT): Well controlled on the current regimen. Avoidance of salt, proper body weight, and routine exercise recommended. Assessment & Plan (06/23/2021 11:37 AM CDT): Well controlled on the current regimen. Avoidance of salt, proper body weight, and routine exercise recommended. Assessment & Plan (12/10/2020 9:24 AM JUNIOR RECRUITER): Well controlled on the current regimen. Avoidance of salt, proper body weight, and routine exercise recommended. Assessment & Plan (11/07/2020 5:22 PM JUNIOR RECRUITER): Well controlled on the current regimen. Avoidance of salt, proper body weight, and routine exercise recommended. Assessment & Plan (10/02/2020 4:05 PM JUNIOR RECRUITER): Well controlled on the current regimen. Avoidance of salt, proper body weight, and routine exercise recommended. Assessment & Plan (06/09/2020 9:28 AM CDT): Well controlled on the current regimen. Avoidance of salt, proper body weight, and routine exercise recommended. Assessment & Plan (10/15/2019 6:08 PM JUNIOR RECRUITER): Well controlled on the current regimen. Avoidance of salt, proper body weight, and routine exercise recommended. Assessment & Plan (05/13/2019 8:30 PM CDT): Well controlled on the current regimen. Avoidance of salt, proper body weight, and routine exercise recommended. Assessment & Plan (10/11/2018 2:32 PM JUNIOR RECRUITER): Well controlled on the current regimen. Avoidance of salt, proper body weight, and routine exercise recommended. Assessment & Plan (07/10/2018 11:55 AM CDT): Continue irbesartan 300 mg daily but increase amlodipine to 10 mg daily. Side effects discussed and she should call back if any develop. Assessment & Plan (11/17/2017 9:45 AM JUNIOR RECRUITER): Not well controlled today. Increase irbesartan 300 mg daily. Call back for side effects were discussed. Check metabolic panel before next visit. Avoid salt, increase exercise, lose weight. Check blood pressure at home record and bring to next visit. We will see her back in 6 months for wellness visit sooner if needed. Assessment & Plan (05/19/2017 4:08 PM CDT): Well controlled on the current regimen. Avoidance of salt, proper body weight, and routine exercise recommended. Acquired hypothyroidism 04/06/2014 Assessment & Plan (02/04/2025 11:50 AM CDT): - Chronic, stable - Patient is asymptomatic on current dose of levothyroxine 75 mcg daily - most recent labs as shown below The current medical regimen is effective; continue present plan and medications. Lab Results Component Value Date TSH 2.56 01/29/2025 Assessment & Plan (08/08/2024 11:15 AM CDT): - Chronic, stable - Patient is asymptomatic on current dose of levothyroxine 75 mcg daily - most recent labs as shown below - wants to know if she has to continue taking medication, concern about dementia developing, discussed about risk and benefit with the use of medication --> Opted to continue with medication - continue current management Lab Results Component Value Date TSH 2.88 07/30/2024 Assessment & Plan (03/20/2024 12:25 PM CDT): - Chronic, stable - Patient is asymptomatic on current dose of levothyroxine 75 mcg daily - most recent labs as shown below - continue current management Lab Results Component Value Date TSH 2.62 03/12/2024 Assessment & Plan (09/20/2023 2:30 PM CDT): Patient is asymptomatic on current dose of levothyroxine and TSH free T4 are normal and we will repeat levels before next visit. Assessment & Plan (03/15/2023 1:36 PM CDT): Patient is asymptomatic on current dose of levothyroxine and TSH free T4 are normal and we will repeat levels before next visit. Assessment & Plan (08/26/2022 10:55 AM CDT): Patient is asymptomatic on current dose of levothyroxine and TSH free T4 are normal and we will repeat levels before next visit. Assessment & Plan (02/24/2022 9:02 AM CDT): Patient is asymptomatic on current dose of levothyroxine and TSH free T4 are normal and we will repeat levels before next visit. Assessment & Plan (06/23/2021 11:37 AM CDT): Patient is asymptomatic on current dose of levothyroxine and TSH free T4 are normal and we will repeat levels before next visit. Assessment & Plan (12/10/2020 9:23 AM JUNIOR RECRUITER): Patient is asymptomatic on current dose of levothyroxine and TSH free T4 are normal and we will repeat levels before next visit. Assessment & Plan (10/02/2020 4:05 PM JUNIOR RECRUITER): Patient is asymptomatic on current dose of levothyroxine and TSH free T4 are normal and we will repeat levels before next visit. Assessment & Plan (06/09/2020 9:28 AM CDT): Patient is asymptomatic on current dose of levothyroxine and TSH free T4 are normal and we will repeat levels before next visit. Assessment & Plan (10/15/2019 6:07 PM JUNIOR RECRUITER): Patient is asymptomatic on current dose of levothyroxine and TSH free T4 are normal and we will repeat levels before next visit. Assessment & Plan (05/13/2019 8:29 PM CDT): Patient is asymptomatic on current dose of levothyroxine and TSH free T4 are normal and we will repeat levels before next visit. Assessment & Plan (10/11/2018 2:31 PM JUNIOR RECRUITER): Patient is asymptomatic on current dose of levothyroxine and TSH free T4 are normal and we will repeat levels before next visit. Assessment & Plan (11/17/2017 9:43 AM JUNIOR RECRUITER): Patient is asymptomatic on current dose of levothyroxine and TSH free T4 are normal and we will repeat levels before next visit. Assessment & Plan (05/19/2017 4:07 PM CDT): Patient is asymptomatic on current dose of levothyroxine and TSH free T4 are normal and we will repeat levels before next visit. Mixed hyperlipidemia 04/06/2014 Assessment & Plan (02/04/2025 11:49 AM CDT): - chronic, stable - Well controlled on current therapy of Atorvastatin 20 mg nightly - most recent labs as shown below The current medical regimen is effective; continue present plan and medications. The ASCVD Risk score (Alexandria PORTER, et al., 2019) failed to calculate for the following reasons: The valid total cholesterol range is 130 to 320 mg/dL Lab Results Component Value Date CHOL 126 01/29/2025 CHOL 147 07/30/2024 CHOL 128 03/12/2024 Lab Results Component Value Date HDL 35 (L) 01/29/2025 HDL 49 07/30/2024 HDL 36 (L) 03/12/2024 Lab Results Component Value Date LDLCALC 67 01/29/2025 LDLCALC 72 07/30/2024 LDLCALC 63 03/12/2024 LDL 70 04/21/2016 LDL 65 10/17/2015 LDL 55 (L) 04/17/2015 Lab Results Component Value Date TRIG 132 01/29/2025 TRIG 152 (H) 07/30/2024 TRIG 144 03/12/2024 Assessment & Plan (08/08/2024 11:14 AM CDT): - chronic, stable - Well controlled on current therapy and will check a lipid panel and LFTs in 6 months. - most recent labs as shown below - currently on Atorvastatin 20 mg nightly - wants to know if she has to continue taking medication, concern about dementia developing, discussed about risk and benefit with the use of medication - continue current management The 10-year ASCVD risk score (Alexandria PORTER, et al., 2019) is: 24% Values used to calculate the score: Age: 74 years Sex: Female Is Non- : No Diabetic: No Tobacco smoker: No Systolic Blood Pressure: 140 mmHg Is BP treated: Yes HDL Cholesterol: 49 mg/dL Total Cholesterol: 147 mg/dL Lab Results Component Value Date CHOL 147 07/30/2024 CHOL 128 03/12/2024 CHOL 120 09/12/2023 Lab Results Component Value Date HDL 49 07/30/2024 HDL 36 (L) 03/12/2024 HDL 38 (L) 09/12/2023 Lab Results Component Value Date LDLCALC 72 07/30/2024 LDLCALC 63 03/12/2024 LDLCALC 59 09/12/2023 LDL 70 04/21/2016 LDL 65 10/17/2015 LDL 55 (L) 04/17/2015 Lab Results Component Value Date TRIG 152 (H) 07/30/2024 TRIG 144 03/12/2024 TRIG 116 09/12/2023 Assessment & Plan (03/20/2024 12:27 PM CDT): - chronic, stable - Well controlled on current therapy and will check a lipid panel and LFTs in 6 months. - most recent labs as shown below - currently on Atorvastatin 20 mg nightly - continue current management The ASCVD Risk score (Alexandria DK, et al., 2019) failed to calculate for the following reasons: The valid total cholesterol range is 130 to 320 mg/dL Lab Results Component Value Date CHOL 128 03/12/2024 CHOL 120 09/12/2023 CHOL 127 03/08/2023 Lab Results Component Value Date HDL 36 (L) 03/12/2024 HDL 38 (L) 09/12/2023 HDL 40 03/08/2023 Lab Results Component Value Date LDLCALC 63 03/12/2024 LDLCALC 59 09/12/2023 LDLCALC 60 03/08/2023 LDL 70 04/21/2016 LDL 65 10/17/2015 LDL 55 (L) 04/17/2015 Lab Results Component Value Date TRIG 144 03/12/2024 TRIG 116 09/12/2023 TRIG 134 03/08/2023 Assessment & Plan (09/20/2023 2:30 PM CDT): Well controlled on current therapy and will check a lipid panel and LFTs in 6 months. Assessment & Plan (03/15/2023 1:36 PM CDT): Well controlled on current therapy and will check a lipid panel and LFTs in 6 months. Assessment & Plan (08/26/2022 10:55 AM CDT): Well controlled on current therapy and will check a lipid panel and LFTs in 6 months. Assessment & Plan (02/24/2022 9:02 AM CDT): Well controlled on current therapy and will check a lipid panel and LFTs in 6 months. Assessment & Plan (06/23/2021 11:37 AM CDT): Well controlled on current therapy and will check a lipid panel and LFTs in 6 months. Assessment & Plan (12/10/2020 9:26 AM JUNIOR RECRUITER): Patient was not fasting accounting for her elevated triglyceride level. Well controlled on current therapy and will check a lipid panel and LFTs in 6 months. Assessment & Plan (06/09/2020 9:28 AM CDT): Well controlled on current therapy and will check a lipid panel and LFTs in 6 months. Assessment & Plan (10/15/2019 6:08 PM JUNIOR RECRUITER): Well controlled on current therapy and will check a lipid panel and LFTs in 6 months. Assessment & Plan (05/13/2019 8:29 PM CDT): Well controlled on current therapy and will check a lipid panel and LFTs in 6 months. Assessment & Plan (10/11/2018 2:31 PM JUNIOR RECRUITER): Well controlled on current therapy and will check a lipid panel and LFTs in 6 months. Assessment & Plan (11/17/2017 9:43 AM JUNIOR RECRUITER): Well controlled on current therapy and will check a lipid panel and LFTs in 6 months. Assessment & Plan (05/19/2017 4:09 PM CDT): Well controlled on current therapy and will check a lipid panel and LFTs in 12 months. Vitamin D deficiency 04/06/2014 Assessment & Plan (03/20/2024 12:36 PM CDT): - chronic condition, stable status - currently on Vitamin D3 supplementation --> unknown dose - continue current management Lab Results Component Value Date 25HYDROVITD 57 03/12/2024 25HYDROVITD 29 (L) 03/08/2023 25HYDROVITD 37 12/21/2021 25HYDROVITD 38 12/01/2020 25HYDROVITD 52 10/01/2019 Assessment & Plan (09/20/2023 2:31 PM CDT): Continue vitamin-D supplementation and check level before next visit Assessment & Plan (03/15/2023 1:35 PM CDT): Increase vitamin-D supplementation slightly and check level in 1 year. Assessment & Plan (08/26/2022 10:54 AM CDT): Continue current supplementation and check level in 1 year. Assessment & Plan (02/24/2022 9:02 AM CDT): Continue current supplementation and check level in 1 year. Assessment & Plan (06/23/2021 11:37 AM CDT): Continue vitamin-D supplementation and check level before next visit. Assessment & Plan (12/10/2020 9:22 AM JUNIOR RECRUITER): Continue current supplementation and check level in 1 year. Assessment & Plan (06/09/2020 9:27 AM CDT): Continue supplementation check levels before next visit. Assessment & Plan (10/15/2019 6:07 PM JUNIOR RECRUITER): Continue current supplementation and check level in 1 year. Assessment & Plan (10/11/2018 2:31 PM JUNIOR RECRUITER): Continue current supplementation and check level in 1 year. Assessment & Plan (11/17/2017 9:43 AM JUNIOR RECRUITER): Continue current supplementation and check level in 6 months. Assessment & Plan (05/19/2017 4:08 PM CDT): Continue supplementation check a level in 1 year. Chronic obstructive pulmonary disease 04/02/2013 Assessment & Plan (08/10/2024 3:45 AM CDT): Chronic, stable Continue Trelegy daily and use albuterol as needed which she has not needed neither has she used her duoneb in a long time Continue oxygen supplementation with exertion Former smoker, quit over 20 years ago, smoked for about 1pk/day for 40 years Follows with pulmonology annually but not beng actively managed --> I have asked her to ask her contact lens technician to take over management of her Trelegy in past visit Assessment & Plan (03/20/2024 1:08 PM CDT): Chronic, stable Continue Trelegy daily and use albuterol as needed which she has not needed neither has she used her duoneb in a long time Continue oxygen supplementation with exertion Former smoker, quit over 20 years ago, smoked for about 1pk/day for 40 years Follows with pulmonology annually but not beng actively managed --> I have asked her to ask her contact lens technician to take over management of her Trelegy, albuterol and nebulizer inhalers as well as supplemental oxygen on her upcoming appointment in few weeks Assessment & Plan (09/20/2023 2:30 PM CDT): Continue Trelegy daily and use albuterol as needed. Continue oxygen supplementation with exertion Assessment & Plan (03/15/2023 1:37 PM CDT): Continue current medication regimen and supplemental oxygen and follow up with her contact lens technician as they direct Assessment & Plan (08/26/2022 10:55 AM CDT): Continue Trelegy daily and albuterol as needed and oxygen supplementation follow-up with her contact lens technician as they direct. Assessment & Plan (02/24/2022 9:02 AM CDT): Continue her Trelegy daily and albuterol as needed and oxygen supplementation and follow-up with contact lens technician as they direct. Assessment & Plan (06/23/2021 11:37 AM CDT): Continue current medications and oxygen follow-up with her contact lens technician as they direct. Assessment & Plan (12/10/2020 9:24 AM JUNIOR RECRUITER): Continue Trelegy and use ProAir p.r.n.. Continue oxygen continuously. Follow-up with her new contact lens technician as they direct. Assessment & Plan (11/07/2020 5:22 PM JUNIOR RECRUITER): Continue Trelegy daily. Use nebulizer 4 times a day. Pulmonary referral placed. Home oxygen cannot be arranged until Tuesday unfortunately. Assessment & Plan (10/20/2020 2:53 PM JUNIOR RECRUITER): Patient requires a nebulizer at home to help with her sudden bronchospasms and shortness of breath. Prescription given. Continue Trelegy. Referral to pulmonary if no improvement. Assessment & Plan (10/02/2020 4:05 PM JUNIOR RECRUITER): Change Anoro to Trelegy. Use albuterol p.r.n.. She reports occasional oxygen levels of 85% when ambulating. Recommended 6 minutes ambulatory pulse oximetry testing she currently declines. Call back if oxygen levels do not improve. Assessment & Plan (06/09/2020 9:28 AM CDT): Stable on her Anoro and uses albuterol as needed. Assessment & Plan (10/15/2019 6:08 PM JUNIOR RECRUITER): Well controlled on Anoro and should use albuterol p.r.n. Assessment & Plan (05/13/2019 8:29 PM CDT): Would recommend being more consistent with her Anoro. Use albuterol p.r.n. Assessment & Plan (01/30/2019 11:18 AM CDT): Stable w/o concerns of exacerbation at this time. Cnt. Current daily Anoro inhaler as prescribed. RTC w/ any sx indicating exacerbation from acute viral illness Assessment & Plan (10/11/2018 2:31 PM JUNIOR RECRUITER): Add Anoro daily. Warned of side effects. Use ProAir p.r.n.. Assessment & Plan (07/10/2018 11:55 AM CDT): Patient declines discussion of inhalers. If no improvement by next visit would recommend Anoro. Assessment & Plan (11/17/2017 9:43 AM JUNIOR RECRUITER): Asymptomatic currently. Assessment & Plan (05/19/2017 4:07 PM CDT): Stable without medication. History of pulmonary embolus (PE) Assessment & Plan (03/20/2024 12:42 PM CDT): - hx of blood clot PE/DVT after knee replacement surgery - was on eliquis for 6 months - none since then Assessment & Plan (10/11/2018 2:32 PM JUNIOR RECRUITER): Continue Eliquis until mid November 2017. Assessment & Plan (07/10/2018 11:57 AM CDT): Continue 6 months of Eliquis for provoked DVT until December 02, 2018. O2 saturations today at rest on room air was 98%. Does not require O2 at rest. Will order 6 min ambulatory pulse oximetry testing to ensure that she does not require oxygen while ambulating as well. Resolved Problems Problem Noted Date Diagnosed Date Resolved Date Chronic left shoulder pain 06/09/2020 0 03/20/2024 Assessment & Plan (06/09/2020 10:12 AM CDT): Probably impingement syndrome. Stretching exercises demonstrated. Try low-dose ibuprofen and warned of GI and cardiovascular side effects. Call back for physical therapy new evaluation if no improvement. Acute cystitis with hematuria 01/30/2019 01/30/2019 Assessment & Plan (01/30/2019 11:17 AM CDT): Pt was advised increase fluids, genital hygiene, and frequent voiding to assist with clearance of infection. Prescribed Bactrim DS to take as prescribed over the course of a week. She was advised of side effects, dosage, and use of antibiotics Advised to call us if she does not hear back regarding the urine results in 2-3 business days, and will f/u with patient regarding results and need to change antimicrobial management. Acute URI 01/30/2019 01/30/2019 Assessment & Plan (01/30/2019 11:08 AM CDT): Rapid influenza and strep negative. Appears viral based on presentation today. Supportive therapies to take OTC advised. Indications to RTC provided. Primary osteoarthritis of left knee 05/05/2018 03/20/2024 Overview (05/05/2018): Added automatically from request for surgery [id number] Allergic rhinitis 05/19/2017 03/20/2024 Assessment & Plan (10/11/2018 2:32 PM JUNIOR RECRUITER): Patel abbott Assessment & Plan (11/17/2017 9:44 AM JUNIOR RECRUITER): No complaints today. Aftercare following left kne e joint replacement surgery 05/19/2017 03/20/2024 Assessment & Plan (05/19/2017 4:11 PM CDT): We discussed a comprehensive list of medical conditions and proposed recommendations for each. We discussed the importance of increased exercise, fall prevention, proper nutrition, and suggested joining [facility] to accomplish most of these goals. Patient was given an age appropriate Medicare preventive services checklist. Please see the EMR regarding details of their health risk assessment and preventive services checklist. Will plan on seeing her back in 6 months for metabolic panel, thyroid studies, and blood pressure check sooner if needed At low risk for fall 05/19/2017 022 Assessment & Plan (12/10/2020 9:24 AM JUNIOR RECRUITER): Timed get up and go test normal. Assessment & Plan (10/15/2019 6:08 PM JUNIOR RECRUITER): Timed get up and go test normal. Assessment & Plan (10/11/2018 2:34 PM JUNIOR RECRUITER): Timed get up and go test normal. Assessment & Plan (05/19/2017 4:11 PM CDT): No need for intervention. Gastroesophageal reflux disease 05/11/2016 03/20/2024 Assessment & Plan (10/15/2019 6:08 PM JUNIOR RECRUITER): Well controlled without medication. Assessment & Plan (10/11/2018 2:32 PM JUNIOR RECRUITER): Well controlled without medication. Assessment & Plan (11/17/2017 9:44 AM JUNIOR RECRUITER): Well controlled without medication. Assessment & Plan (05/19/2017 4:08 PM CDT): Well controlled without medication. Acute respiratory failure with hypoxia 03/20/2024 Normocytic anemia 03/20/2024 Fever 06/08/2018 Venous thromboembolism 03/20 Iron deficiency anemia 03/20 Overview (10/11/2018): Hemoglobin and Iron studies normalized without supplement following surgery complicated by pulmonary embolism. Uncontrolled hypertension Immunizations Immunization Administration Dates Next Due Influenza, Quad, Adjuvantate d, Intramuscular 08/19/2020 Influenza, Quadrivalent, Hig h Dose, Preservative Free, Intrr 09/20/2023,08/26/2022,09/01/2021 Influenza, Split 10/03/2013, 2,09/10/2011,09/03 Influenza, Trivalent, High D ose, Split, Preservative Free, Intramuscular 08/08/2024,10/15/2019,09/12/2018,09/21,08/21/2015 Influenza, Trivalent, IM (MDV) 08/29/2014,2008 Influenza, Unspecified 08/26/2022,2021(Deferred: Patient Refused),09/01/2021,06/23/2021(Deferre d: Patient Refused),08/26/2017 Pfizer SARS-CoV-2 Monovalent Vaccination (12+ Yrs) PURPLE 11/28/2021,02/14/2021,01/22/2021 Pfizer Sars-cov-2 Monovalent Vaccination (6 Mos-4 Yrs) 04/21/2022,03/21/2022,02/07/2022 Pneumococcal Conjugate PCV 13 04/25/2014, 014 Pneumococcal Polysaccharide PPV23 10/25/2014 RSV Vaccine, Pref, Recombina nt, Subunit, Adjuvanted, PF, IM (Arexvy) 11/03/2023 Tdap 12/06/2019,10/20/2009 ZOSTER LIVE 08/29/2014 Social History Tobacco Use Types Packs/Day Years Used Date Smoking Tobacco: Former Cigarettes 1 40 1 965 - 2005 Smokeless Tobacco: Former Tobacco Cessation:Counseling Given: Yes Comments:Smoking History Packs/day: 1 Packs Alcohol Use Standard Drinks/Week Comments No 0 (1 standard drink = 0.6 oz pur e alcohol) AUDIT-C Answer Date Recorded Q1: How often do you have a drink containing alcohol? Never 02/04/2025 Q2: How many drinks containi ng alcohol do you have on a typical day when you are drinking? Patient does not drink Q3: How often do you have si x or more drinks on one occasion? Never 02/04/2025 PHQ-2 Answer Date Recorded PHQ-2 Total Score (If total score is 3 or more points, staff should administer the PHQ-9) 0 02/04/2025 Comments No Sex and Gender Information Value Date Recorded Sex Assigned at Not on file Legal Sex Female 11:49 PM JUNIOR RECRUITER Gender Identity Not on file Sexual Orientation Not on file Last Filed Vital Signs Vital Sign Reading Time Taken Comments Blood Pressure 108/58 02/04/2025 11:58 AM CDT Pulse 82 02/04/2025 11:19 AM CDT Temperature 36.6 C (97.9 F) 02/04/2025 11:19 AM CDT Respiratory Rate 16 02/04/2025 11:19 AM CDT Oxygen Saturation 93% 02/04/2025 11:19 AM CDT Inhaled Oxygen Concentration - - Weight 98.7 kg (217 lb 9.6 oz) 02/04/2025 11:19 AM CDT Height 156 cm (5' 1.42) 02/04/2025 11:19 AM CDT Body Mass Index 40.56 02/04/2025 11:19 AM CDT Plan of Treatment Upcoming Encounters Date Type Department Care Team (Late st Contact Info) Description 05/29/2025 10:00 AM CDT Hospital Encounter [address] [address] Mariusz Rosenberg DO [address] [facility] [address] [place] [address] [place] [id number] 05/29/2025 10:00 AM CDT - 05/29/2025 10:30 AM CDT Surgery [address] [address] Mariusz Rosenberg DO [address] [facility] [address] [place] [address] COLONOSCOPY Scheduled Procedures Name Priority Associated Diagnoses Date/Ti me COLONOSCOPY Family history of colon cancer History of colonic polyps Encounter for screening colonoscopy 05/29/2025 10:00 AM CDT Medical Devices Implanted Type Area Cosmetic Sales Advisor Device Identifier Shelf Expiration Date Model / Serial / Lot [employer] [id number] Attune Cementless Rotate Platform Knee 6 Baseplate Tibial - [id number] Implanted:Qty: 1 on 05/30/2018 by Constantino Baptiste MD at [facility] Left: Knee [employer] [id number] 05/20/2027 [id number] / / [id number] [employer] [id number] Attune Cruciate Retain Cementless Knee Left 5 Component Femoral - [id number] Implanted:Qty: 1 on 05/30/2018 by Constantino Baptiste MD at [facility] Left: Knee [employer] 11/20/2027 [id number] / / [id number] [employer] [id number] Cmw 2 Fast Set Cement 20gm Bone Sterile - [id number] Implanted:Qty: 1 on 05/30/2018 by Constantino Baptiste MD at [facility] Left: Knee [employer] 08/20/2020 [id number] / / [id number] [employer] [id number] Attune 35mm Cemented Medialize Knee Dome Patellar Aox Sterile - [id number] Implanted:Qty: 1 on 05/30/2018 by Constantino Baptiste MD at [facility] Left: Knee [employer] 03/20/2023 [id number] / / [id number] [employer] [id number] Attune 5mm Cruciate Retaining Rotate Platform Knee 5 Insert - [id number] Implanted:Qty: 1 on 05/30/2018 by Constantino Baptiste MD at [facility] Left: Knee [employer] 12/21/2022 [id number] / / [id number] Procedures Procedure Name Priority Date/Time Associated Diagnosis Comments EGFR Routine 01/29/2025 8:55 AM CDT Benign hypertension DIFFERENTIAL AUTO Routine 01/29/2025 8:5 5 AM CDT Benign hypertension CBC WITH AUTO DIFFERENTIAL Routine 01/29/2025 8:55 AM CDT Benign hypertension COMPREHENSIVE METABOLIC PANEL Routine 01/29/2025 8:55 AM CDT Benign hypertension HEMOGLOBIN A1C Routine 01/29/2025 8:55 AM CDT Impaired fasting glucose LIPID PANEL Routine 01/29/2025 8:55 AM CDT Mixed hyperlipidemia THYROID FUNCTION CASCADE Routine 01/29/2025 8:55 AM CDT Acquired hypothyroidism DEXA AXIAL SKELETON BONE DENSITY 1 OR MORE SITES Schedule Routine, Read Routine (OP Routine) 10/22/2024 10:18 AM JUNIOR RECRUITER Postmenopausal SCREENING MAMMOGRAM BILATERAL W ASHU Schedule Routine, Read Routine (OP Routine) 10/22/2024 10:02 AM JUNIOR RECRUITER Screening mammogram for breast cancer COLONOSCOPY 11/30/2019 7:49 AM JUNIOR RECRUITER HEPATITIS C AB REFLEX RNA QUANT PCR Routine 11/03/2017 3:28 PM JUNIOR RECRUITER from Last 3 Months or Most Recently Relevant to Health Maintenance Results * (ABNORMAL) eGFR (01/29/2025 8:55 AM CDT) eGFR 54(L) >=60 mL/min/1. 73 m2 Comment: Interpretive Data Reference Interval Normal >/= 90 mL/min/1.73m2 Mildly decreased* 60 - 89 mL/min/1.73m2 Mildly to moderately decreased 45 - 59 mL/min/1.73m2 Moderately to severely decreased 30 - 44 mL/min/1.73m2 Severely decreased 15 - 29 mL/min/1.73m2 Kidney Failure < 15 mL/min/1.73m2 *Relative to young adult level Estimated glomerular filtration rate is determined by the 2020 CKD-EPI equation recommended by the National Kidney Foundation (A Unifying Approach to GFR Estimation: Recommendations of the NKF-ASK Task Force on Reassessing the Inclusion of Race in Diagnosing Kidney Disease, JASN 202). The CKD-EPI equation should not be used for patients with unstable renal function and has not been validated in children and those over 70. Current interpretive data was last reviewed 2021. Blood 01/29/2025 8:55 AM CDT 01/29/2025 9:20 AM CDT us Iam Yañez MD LAB BLOOD ORDERABLES Fi nal Result [facility] ([place]) 5 [facility] [facility] [place] [address] * (ABNORMAL) Differential, auto (01/29/2025 8:55 AM CDT) Neutrophil abs 3.9 1.5 - 6.5 K/cumm Imm gran abs 0.0 0.0 - 0.1 K/cumm [facility] ([place]) Lymphocyte abs 1.8 0.8 - 3.3 K/cumm [facility] ([place]) Monocyte abs 0.9(H) 0.2 - 0.8 K/cumm [facility] ([place]) Eosinophil abs 0.3 0.0 - 0.5 K/cumm [facility] ([place]) Basophil abs 0.1 0.0 - 0.1 K/cumm [facility] ([place]) Neutrophil pct 56.5 % [facility] ([place]) Comment: Interpretive Data Percent cell count reference ranges are not reported, since discordance with absolute values may lead to misinterpretation of CBC data. Current Interpretive Data was last revised on 2018. Imm gran pct 0.3 % [facility] ([place]) Comment: Interpretive Data Percent cell count reference ranges are not reported, since discordance with absolute values may lead to misinterpretation of CBC data. Current Interpretive Data was last revised on 2018. Lymphocyte pct 25.5 % [facility] ([place]) Comment: Interpretive Data Percent cell count reference ranges are not reported, since discordance with absolute values may lead to misinterpretation of CBC data. Current Interpretive Data was last revised on 2018. Monocyte pct 13.2 % [facility] ([place]) Comment: Interpretive Data Percent cell count reference ranges are not reported, since discordance with absolute values may lead to misinterpretation of CBC data. Current Interpretive Data was last revised on 2018. Eosinophil pct 3.8 % [facility] ([place]) Comment: Interpretive Data Percent cell count reference ranges are not reported, since discordance with absolute values may lead to misinterpretation of CBC data. Current Interpretive Data was last revised on 2018. Basophil pct 0.7 % [facility] ([place]) Comment: Interpretive Data Percent cell count reference ranges are not reported, since discordance with absolute values may lead to misinterpretation of CBC data. Current Interpretive Data was last revised on 2018. Blood 01/29/2025 8:55 AM CDT 01/29/2025 9:20 AM CDT Iam Yañez MD LAB BLOOD ORDERABLES Fi nal Result ERICK BOLIVAR ([place]) 1 [facility] [place] [address] * Thyroid Function [place] (01/29/2025 8:55 AM CDT) [facility] TSH 2.56 0.30 - 4.20 mcIUnit/mL Blood 01/29/2025 8:55 AM CDT 01/29/2025 9:20 AM CDT Iam Yañez MD LAB BLOOD ORDERABLES Fi nal Result Performing Organization Address City/[facility]/ZIP Co de Phone Number ERICK BOLIV[facility] ([place]) 1 [facility] [place] [address] * CBC with auto differential (01/29/2025 8:55 AM CDT) [facility] WBC 6.9 3.8 - 9.9 K/cumm Hgb 14.0 11.9 - 15.5 g/dL [facility] ([place]) Hct 42.7 35.6 - 45.5 % [facility] ([place]) Plt 283 150 - 400 K/cumm [facility] ([place]) MPV 10.6 9.1 - 12.3 fL [facility] ([place]) RBC 4.71 3.90 - 5.20 M/cumm [facility] ([place]) MCV 90.7 81.3 - 96.4 fL [facility] ([place]) MCH 29.7 27.1 - 33.3 pg [facility] ([place]) MCHC 32.8 32.3 - 35.7 g/dL [facility] ([place]) RDW CV 13.9 11.1 - 14.9 % [facility] ([place]) RDW SD 45.9 35.7 - 48.1 fL [facility] ([place]) NRBC abs 0.00 0.00 - 0.01 K/cumm [facility] ([place]) Blood 01/29/2025 8:55 AM CDT 01/29/2025 9:20 AM CDT Iam Yañez MD LAB BLOOD ORDERABLES Fi nal Result Performing Organization Address City/[facility] Co de Phone Number ERICK [facility] ([place]) 1 [facility] [place] [address] * Hemoglobin A1c (01/29/2025 8:55 AM CDT) Hgb A1C 5.6 4.0 - 5.6 % Estimated Average Glucose 114 mg/dL ER[facility] ([place]) Comment: The ADA recommends reporting an estimated Average Glucose (eAG) with all Hemoglobin A1c results using the equation derived from a study of 507 normal and diabetic adults. Minority populations were underrepresented and children were not included. (Diabetes Care 31:7996-7286, 2008). The eAG is not equivalent to a fasting glucose. Blood 01/29/2025 8:55 AM CDT 01/29/2025 9:20 AM CDT Iam Yañez MD LAB BLOOD ORDERABLES Fi nal Result Performing Organization Address [facility] Co de Phone Number ERICK BOLIV[facility] ([place]) [address] [place] [address] * (ABNORMAL) Lipid panel (01/29/2025 8:55 AM CDT) Cholesterol 126 30 - 199 mg/dL Comment: Interpretive Data Ages < or = 19 years Acceptable: <170 mg/dL Borderline high: 170-199 mg/dL High: >or= 200 mg/dL Ages > or = 20 years Desirable: <200 mg/dL Borderline high: 200-239 mg/dL High: >or= 240 mg/dL Literature References: 1. Expert Panel on Integrated Guidelines for Cardiovascular Health and Risk Reduction in Children and Adolescents. Pediatrics 2011;128:S213 2. NCEP Expert Panel. Circulation 2004;110:227 Current Interpretive Data was last revised on 2018. Triglycerides 132 <=149 mg/dL [facility] ([place]) Comment: Interpretive Data Ages < or = 9 years Acceptable: <75 mg/dL Borderline high: 75-99 mg/dL High: >or= 100 mg/dL Ages 10 to 20 years Acceptable: <90 mg/dL Borderline high: 90-129 mg/dL High: >or= 130 mg/dL Ages > or = 20 years Desirable: <150 mg/dL Borderline high: 150-199 mg/dL High: 200-499 mg/dL Very high: >or= 499 mg/dL Literature References: 1. Expert Panel on Integrated Guidelines for Cardiovascular Health and Risk Reduction in Children and Adolescents. Pediatrics 2011;128:S213 2. NCEP Expert Panel. Circulation 2004;110:227 Current Interpretive Data was last revised on 2018. HDL 35(L) >=40 mg/dL ERICK CORRAL[facility]) Comment: Interpretive Data Ages < or = 19 years Acceptable: >45 mg/dL Borderline low: 40-45 mg/dL Low: <40 mg/dL Ages > or = 20 years Desirable: >or= 60 mg/dL Low: <40 mg/dL Literature References: 1. Expert Panel on Integrated Guidelines for Cardiovascular Health and Risk Reduction in Children and Adolescents. Pediatrics 2011;128:S213 2. NCEP Expert Panel. Circulation 2004;110:227 Current Interpretive Data was last revised on 2018. LDL, calculated 67 <=129 mg/dL ERICK CORRALES) Comment: Interpretive Data Ages < or = 19 years Acceptable: <110 mg/dL Borderline high: 110-129 mg/dL High: >or= 130 mg/dL Ages > or = 20 years Optimal: <100 mg/dL Near optimal: 100-129 mg/dL Borderline high: 130-159 mg/dL High: >160 mg/dL Calculated using the Gustabo LDL-C estimating equation. This equation was implemented on 2024. Prior to this date LDL-C was estimated using the Friedewald equation. Literature References: 1. Expert Panel on Integrated Guidelines for Cardiovascular Health and Risk Reduction in Children and Adolescents. Pediatrics 2011;128:S213 2. NCEP Expert Panel. Circulation 2004;110:227 3. Gustabo Fitch al. SALEEM Cardiol. 2020 March 21;5(5):540-548. doi: 10.1001/jamacardio.2020.0013 Current Interpretive Data was last revised on 2024. Non-HDL Cholesterol 91 mg/dL [facility] ([place]) Comment: Interpretive Data Ages < or = 19 years Acceptable: <120 mg/dL Borderline high: 120-144 mg/dL High: >145 mg/dL Ages > or = 20 years When triglycerides are >200 mg/dL, Non-HDL cholesterol is a secondary target of therapy with treatment goals that are 30 mg/dL greater than the LDL cholesterol target. Literature References: 1. Expert Panel on Integrated Guidelines for Cardiovascular Health and Risk Reduction in Children and Adolescents. Pediatrics 2011;128:S213 2. NCEP Expert Panel. Circulation 2004;110:227 Current Interpretive Data was last revised on 2018. Chol/HDL ratio 4 [facility] ([place]) Blood 01/29/2025 8:55 AM CDT 01/29/2025 9:20 AM CDT Iam Yañez MD LAB BLOOD ORDERABLES Fi nal Result [facility] ([place]) 1 [facility] Department [place] [address] * Comprehensive metabolic panel (01/29/2025 8:55 AM CDT) Sodium 139 135 - 145 mmol/L Potassium, pl 4.7 3.3 - 4.9 mmol/L [facility] ([place]) Chloride 104 97 - 110 mmol/L [facility] ([place]) CO2 26 22 - 32 mmol/L [facility] ([place]) Anion gap 9 2 - 15 mmol/L [facility] ([place] BUN 21 6 - 25 mg/dL [facility] ([place]) Creatinine 1.07 0.60 - 1.10 mg/dL [facility] ([place]) Glucose 106 70 - 199 mg/dL [facility] ([place]) Comment: Interpretive Data Fasting glucose >/= 126 mg/dl is diagnostic for diabetes. Fasting is defined as no caloric intake for at least 8 hours. Fasting glucose between 100 mg/dl to 125 mg/dl is diagnostic of prediabetes. In a patient with classic symptoms of hyperglycemia or hyperglycemic crisis, a random glucose >/= 200 mg/dl is diagnostic for diabetes. In the absence of unequivocal hyperglycemia, results should be confirmed by repeat testing. The classification and Diagnosis of Diabetes Diabetes Care 2021; 46: S19-S40. Current interpretive data was last revised 2022. Calcium 9.1 8.5 - 10.3 mg/dL [facility] ([place]) Bilirubin, total 0.5 0.1 - 1.2 mg/dL [facility] ([place]) Protein, pl 6.6 6.5 - 8.5 g/dL [facility] ([place]) Albumin 4.0 3.5 - 5.0 g/dL [facility] ([place]) Alk phos 90 40 - 130 Units/L [facility] ([place]) ALT 20 7 - 45 Units/L [facility] ([place]) AST 18 10 - 45 Units/L [facility] ([place]) Comment: Hemolysis present. Results may be affected. Slightly Hemolyzed Specimen Blood 01/29/2025 8:55 AM CDT 01/29/2025 9:20 AM CDT us Iam Yañez MD LAB BLOOD ORDERABLES Fi nal Result [facility] ([place]) 1 [facility] Department [place] [address] * Dexa Axial Skeleton Bone Density 1 or 2 Site (10/22/2024 10:18 AM JUNIOR RECRUITER) Anatomical Region Laterality Modality Body N/A Other 10/22/2024 5:58 PM JUNIOR RECRUITER Narrative 10/22/2024 5:59 PM JUNIOR RECRUITER EXAM DESCRIPTION: DEXA AXIAL SKELETON BONE DENSITY 1 OR MORE SITES REASON FOR STUDY: 74 y/o year old F with given history of: postmenopausal Screening. Cosmetic Sales Advisor/Model: Enval (S/N [id number]) CLINICAL INFORMATION: Current height: 63 inches Maximum height: 63 inches Weight: 215 pounds Risk factors: Postmenopausal, asthma or emphysema COMPARISON: None available FINDINGS: AP LUMBAR SPINE L1-L2: Total BMD is 1.099 g/cm2 T-score is 1.1 LEFT HIP: Total BMD is 0.870 g/cm2 T-score is -0.6 Femoral neck BMD is 0.642 g/cm2 T-score is -1.9 FRAX: 10 year risk for a major osteoporotic fracture is 11 %, 10 year risk for a hip fracture is 2.6 % IMPRESSION: Low Bone Mass. REFERENCE: Bone mineral density: T-Score: Normal (T-score above or = -1.0) Low bone mass (T-score between -1.0 and -2.5) replaces the previously used term osteopenia Osteoporosis (T-score = or below -2.5) Z-Score: Within the expected range for age (Z-score above -2.0) Below the expected range for age (Z-score is -2.0 or below) Please see below follow up recommendations. Medical evaluation for secondary causes of low bone mineral density may be appropriate. FRAX is a World Health Organization validated fracture risk assessment tool that calculates a person's 10 year probability of a major osteoporosis related fracture and hip fracture. According to the National Osteoporosis Foundation guidelines, postmenopausal women and men age 50 or older with low bone mass and a 10 year probability of a major osteoporosis related fracture = or greater than 20% or a 10 year probability of a hip fracture = or greater than 3% should be considered for pharmacological treatment for the prevention of osteoporosis. For further information, including treatment recommendations, please refer to the 2019 ISCD Official Positions (http://www.iscd.org) and the NOF's Clinician's Guide to Prevention and Treatment of Osteoporosis (http://www.nof.org/professionals/clinical-guidelines) THIS IS AN ELECTRONICALLY VERIFIED FINAL REPORT 10/22/2024 5:59 PM - Electronically signed by Tank Alexander M.D. MF: VERITO Report ID: [id number] Reading Location: [id number] [facility] Note Tank Alexander MD - 10/22/2024 EXAM DESCRIPTION: DEXA AXIAL SKELETON BONE DENSITY 1 OR MORE SITES REASON FOR STUDY: 74 y/o year old F with given history of:postmenopausal Screening. 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 REFERENCE: Bone mineral density: T-Score: Normal (T-score above or = -1.0) Low bone mass (T-score between -1.0 and -2.5) replaces thepreviously used term osteopenia Osteoporosis (T-score = or below -2.5) Z-Score: Within the expected range for age (Z-score above -2.0) Below the expected range for age (Z-score is -2.0 or below) Please see below follow up recommendations. Medical evaluation forsecondary causes of low bone mineral density may be appropriate. FRAX is a World Health Organization validated fracture risk assessmenttool that calculates a person's 10 year probability of a major osteoporosisrelated fracture and hip fracture. According to the National OsteoporosisFoundation guidelines, postmenopausal women and men age 50 or older with low bonemass and a 10 year probability of a major osteoporosis related fracture = or greater than 20% or a 10 year probability of a hip fracture = or greaterthan 3% should be considered for pharmacological treatment for the preventionof osteoporosis. For further information, including treatment recommendations, please referto the 2019 ISCD Official Positions (http://www.iscd.org) and the NOF's Clinician's Guide to Prevention and Treatment of Osteoporosis (http://www.nof.org/professionals/clinical-guidelines) THIS IS AN ELECTRONICALLY VERIFIED FINAL REPORT 10/22/2024 5:59 PM - Electronically signed by Tank Alexander M.D. MF: VERITO Report ID: [id number] Reading Location: [place] [address] us Iamjanna Yañez MD IM DXA PROCEDURES Erica l Result * Screening Mammogram Bilateral W Ashu (10/22/2024 10:02 AM JUNIOR RECRUITER) Anatomical Region Laterality Modality Breast Bilateral Mammography 10/22/2024 10:2 7 AM JUNIOR RECRUITER Impressions 10/22/2024 10:27 AM JUNIOR RECRUITER No evidence of malignancy in either breast. FINAL ASSESSMENT: BI-RADS Category 1: Negative. RECOMMENDATION: Recommend return for annual screening mammogram in 12 months. Electronically signed by: Tra Whitt M.D. Narrative 10/22/2024 10:27 AM JUNIOR RECRUITER EXAMINATION: BILATERAL SCREENING MAMMOGRAM COMPARISON: 10/14/2023, 09/24/2022, 09/18/2021, 09/17/2020 TECHNIQUE: Full-field 2D and digital breast tomosynthesis (DBT) images were obtained. CAD was utilized. BREAST PARENCHYMAL COMPOSITION: The breasts are almost entirely fatty. FINDINGS: No suspicious masses, suspicious calcifications, or other suspicious findings are seen in either breast. There is no new suspicious finding in either breast on mammogram. us Andrews Arango MD IMG MAMMO PROCEDURES Final R esult * COLONOSCOPY (11/30/2019 7:49 AM JUNIOR RECRUITER) Anatomical Region Laterality Modality Other Narrative Procedure Note José Miguel Cornelius MD - 11/30/2019 7:49 AM CST [facility] Patient Name: Mckinley Fabian Procedure Date: 11/30/2019 7:49 AM Date of : 1950 Admit Type: Outpatient Age: 69 Gender: Female Attending MD: José Miguel Cornelius M.D. Room: [facility] ENDOSCOPY ROOM 2 Note Status: Finalized Patient Profile: Refer to note in patient chart for documentation of history and physical. Procedure: Colonoscopy Indications: High risk colon cancer surveillance: Personalhistory of colonic polyps, Family history of colon cancer tracey distant relative, Last colonoscopy: January 2017 Referring MD: Andrews Arango M.D. Providers: José Miguel Cornelius M.D. Impression: - Hemorrhoids found on perianal exam. - One 5 mm polyp in the sigmoid colon, removed witha hot biopsy forceps. Resected and retrieved. Recommendation: - Discharge patient to home. - Resume previous diet. - Continue present medications. - Await pathology results. - Repeat colonoscopy in 5 years for surveillance. - Return to primary care physician as previously scheduled. Medicines: Propofol per Anesthesia Complications: No immediate complications. Estimated Blood Loss: Estimated blood loss: none. Procedure: Pre-Anesthesia Assessment: - This assessment was completed [Time of Assessment] prior to the administration of sedation. The benefits, risks and alternatives of theprocedure and sedation were discussed and informed consent was obtained. All questions were answered. Please referto the signed informed consent document in the medical record. Bowel prep was administered using a single dose. The bowel preparation used was Miralax. Thebowel preparation used was bisacodyl tablets. The scopewas passed under direct vision. The [id number] was introduced through the anus andadvanced to the the cecum, identified by appendiceal orificeand ileocecal valve. The colonoscopy was performedwithout difficulty. The patient tolerated the procedurewell. The quality of the bowel preparation wasexcellent. Findings: Hemorrhoids were found on perianal exam. A 5 mm polyp was found in the sigmoid colon. The polyp was sessile.The polyp was removed with a hot biopsy forceps. Resection and retrieval were complete. Verification of patient identification for thespecimen was done by the physician and nurse using the patient's name andbirth date. Estimated blood loss was minimal. The exam was otherwise normal throughout the examined colon. Electronically signed by José Miguel Cornelius M.D. José Miguel Cornelius M.D. 11/30/2019 8:34:44 AM Number of Addenda: 0 Note Initiated On: 11/30/2019 7:49 AM Procedure Code(s): --- Professional --- 01034, Colonoscopy, flexible; with removal of tumor(s), polyp(s), or other lesion(s) by hot biopsy forceps Diagnosis Code(s): --- Professional --- Z80.0, Family history of malignant neoplasm of digestive organs D12.5, Benign neoplasm of sigmoid colon K64.9, Unspecified hemorrhoids Z86.010, Personal history of colonic polyps CPT copyright 2017 [employer] [place] [employer]. All rights reserved. The codes documented in this report are preliminary and upon director of valuation reviewmay be revised to meet current compliance requirements. Recognized by the [place] [employer] for promoting quality in endoscopy José Miguel Cornelius MD ENDOSCOPY PROCEDURES Final Re sult * Hepatitis C Antibody Reflex Hepatitis C RNA Quantitative PCR (11/03/2017 3:28 PM JUNIOR RECRUITER) Hep C Ab Negative Negative ERICK Blood specimen (specimen) 11/03/2017 3:28 PM JUNIOR RECRUITER 11/03/2017 3:28 PM JUNIOR RECRUITER Narrative ERICK - 11/03/2017 4:14 PM JUNIOR RECRUITER Andrews Arango MD LAB MICROBIOLOGY - GENERAL O RDERABLES Final Result ERICK [id number] Department [place] [address] from Last 3 Months or Most Recently Relevant to Health Maintenance Insurance [facility] [place] [id number] [facility] Advance Directives For more information, please contact: [phone] * Full Code (Latest Code Status on File) Date Activated Date Inactivated Comments 11/30/2019 7:14 AM 11/30/2019 1:34 PM * Full Code Date Activated Date Inactivated Comments 11/30/2019 7:14 AM 11/30/2019 7:14 AM * Full Code Date Activated Date Inactivated Comments 06/12/2018 7:22 PM 11/30/2019 6:43 AM Full Code pe r patient request * Full Code Date Activated Date Inactivated Comments 06/01/2018 3:00 AM 06/03/2018 4:56 PM * Full Code Date Activated Date Inactivated Comments 05/30/2018 2:15 PM 05/31/2018 7:52 PM Care Teams Sterilization Specialist Relationship Specialty Start Date End Date Iam Yañez MD [address] [place] [address] PCP - General Family Medicine 03/20/24 Constantino Baptiste MD [address] [place] [address] Surgeon Orthopedic Surgery 06/03/18 Jakob Link MD [address] [place] [address] Consulting Physician Neurology 06/03/18 [place] [address] [place] [address] Consulting Physician Pulmonary Disease 03/20/24 [place] [address] [place] [address] Referring Physician Dermatology 03/20/24
--- OUTSIDE RECORDS SUMMARY | 2025-04-16 14:39 | XMS_ITS | Clinical Summary ---
Author Organization [facility] Address [address] [place] [address] Care Team Providers Care Hide Inspector And Sorter Name Role Phone Constantino Baptiste MD Unavailable [phone] Jakob Link MD Unavailable Iam Yañez MD Primary Care Provider Tank Lara MD Unavailable [phone] Dionisio Downey MD Unavailable [phone] Allergies No known active allergies Medications multivit scvnaktl-vslu-N A-calcium (THERA-M) 9 mg iron-400 mcg tabletIndicatio [...] goals as detailed in the above note. aIm Yañez MD Right knee pain 08/08/2024 Assessment [...] Nasal saline spray (Simply saline, Little Remedies, [place], [place]) 2 second sprays or 2 squeezes into each nostril while looking down over the sink, do not need to sniff in daily Cancel out ringing with loud fan or radio Assessment & Plan (02/24/2022 9:03 AM CDT): ENT referral as requested. Assessment & Plan (10/23/2021 3:28 PM PACKAGING SALES REPRESENTATIVE): Lipoflavonoids recommended. Hearing protection recommended. Audiology evaluation [...] ambulation. Assessment & Plan (12/10/2020 9:23 AM PACKAGING SALES REPRESENTATIVE): Patient is compliant with her oxygen and requires 2 L at rest and 4 with ambulation. She also requires oxygen while sleeping. She requires a portable oxygen concentrator to help with ADLs and with activities outside of the house. Assessment & Plan (11/07/2020 5:22 PM PACKAGING SALES REPRESENTATIVE): After nebulizer treatment patient's resting pulse oximetry [...] (10/17/2019): Added automatically from request for surgery [id number] History of colonic polyps 10/17/2019 Overview (10/17/2019): Added automatically from request for surgery [id number] [facility] 10/05/2019 Assessment & Plan (03/20/2024 12:44 PM CDT): Medrol Dosepak. Dietary restrictions discussed, weight loss recommended. Avoid alcohol. Consideration of allopurinol if has another attack within 6 months. ..................... - not on any medications - most recent uric acid as shown below Lab Results Component Value Date URICACID 4.9 10/20/2016 Assessment & Plan (10/05/2019 4:42 PM PACKAGING SALES REPRESENTATIVE): Medrol Dosepak. Dietary restrictions discussed, weight loss [...] needed. Assessment & Plan (12/10/2020 9:24 AM PACKAGING SALES REPRESENTATIVE): We discussed a comprehensive list of medical [...] needed. Assessment & Plan (10/15/2019 6:08 PM PACKAGING SALES REPRESENTATIVE): We discussed a comprehensive list of medical [...] needed. Assessment & Plan (10/11/2018 2:33 PM PACKAGING SALES REPRESENTATIVE): We discussed a comprehensive list of medical [...] visit. Assessment & Plan (12/10/2020 9:23 AM PACKAGING SALES REPRESENTATIVE): Continue supplementation and check level in 1 year. Assessment & Plan (10/15/2019 6:07 PM PACKAGING SALES REPRESENTATIVE): Continue current dose of B12 and check levels in 1 year. Assessment & Plan (10/11/2018 2:33 PM PACKAGING SALES REPRESENTATIVE): Continue supplementation. Nocturnal hypoxemia 07/10/2018 Assessment & [...] continued - Avoid alcohol sedatives and other TRAFFIC CONTROL FLAGGER depression that may worsen sleep apnea and [...] continued - Avoid alcohol sedatives and other TRAFFIC CONTROL FLAGGER depression that may worsen sleep apnea and [...] relief. Assessment & Plan (12/10/2020 9:22 AM PACKAGING SALES REPRESENTATIVE): Patient is compliant with the CPAP machine and gets symptomatic relief. Assessment & Plan (06/09/2020 9:27 AM CDT): Patient is compliant with the CPAP machine and gets symptomatic relief. Assessment & Plan (10/15/2019 6:07 PM PACKAGING SALES REPRESENTATIVE): Patient is compliant with the CPAP machine and gets symptomatic relief. Assessment & Plan (05/13/2019 8:29 PM CDT): Patient is compliant with the CPAP machine and gets symptomatic relief. Assessment & Plan (10/11/2018 2:32 PM PACKAGING SALES REPRESENTATIVE): Patient is compliant with the CPAP machine [...] yearly. Assessment & Plan (12/10/2020 9:23 AM PACKAGING SALES REPRESENTATIVE): Patient should reduce sugar and carbs, increase exercise, maintain proper body weight, and will check an A1c once or twice yearly. Assessment & Plan (06/09/2020 9:28 AM CDT): Patient should reduce sugar and carbs, increase exercise, maintain proper body weight, and will check an A1c once or twice yearly. Assessment & Plan (10/15/2019 6:07 PM PACKAGING SALES REPRESENTATIVE): Patient should reduce sugar and carbs, increase exercise, maintain proper body weight, and will check an A1c once or twice yearly. Assessment & Plan (05/13/2019 8:29 PM CDT): Patient should reduce sugar and carbs, increase exercise, maintain proper body weight, and will check an A1c once or twice yearly. Assessment & Plan (10/11/2018 2:32 PM PACKAGING SALES REPRESENTATIVE): Patient should reduce sugar and carbs, increase [...] results. Assessment & Plan (10/11/2018 9:06 AM PACKAGING SALES REPRESENTATIVE): Repeat CT chest march 2019 Assessment & Plan (11/17/2017 9:44 AM PACKAGING SALES REPRESENTATIVE): Repeat CT chest March 2018. Assessment & [...] bupropion Assessment & Plan (12/10/2020 9:22 AM PACKAGING SALES REPRESENTATIVE): Well controlled on her bupropion. Assessment & Plan (06/09/2020 9:28 AM CDT): Mood is stable and well controlled on her bupropion. Assessment & Plan (10/15/2019 6:07 PM PACKAGING SALES REPRESENTATIVE): Well controlled on bupropion. Assessment & Plan (05/13/2019 8:29 PM CDT): Stable on her bupropion. Assessment & Plan (11/17/2017 9:44 AM PACKAGING SALES REPRESENTATIVE): Well controlled on bupropion. Assessment & Plan [...] recommended. Assessment & Plan (12/10/2020 9:24 AM PACKAGING SALES REPRESENTATIVE): Well controlled on the current regimen. Avoidance of salt, proper body weight, and routine exercise recommended. Assessment & Plan (11/07/2020 5:22 PM PACKAGING SALES REPRESENTATIVE): Well controlled on the current regimen. Avoidance of salt, proper body weight, and routine exercise recommended. Assessment & Plan (10/02/2020 4:05 PM PACKAGING SALES REPRESENTATIVE): Well controlled on the current regimen. Avoidance of salt, proper body weight, and routine exercise recommended. Assessment & Plan (06/09/2020 9:28 AM CDT): Well controlled on the current regimen. Avoidance of salt, proper body weight, and routine exercise recommended. Assessment & Plan (10/15/2019 6:08 PM PACKAGING SALES REPRESENTATIVE): Well controlled on the current regimen. Avoidance of salt, proper body weight, and routine exercise recommended. Assessment & Plan (05/13/2019 8:30 PM CDT): Well controlled on the current regimen. Avoidance of salt, proper body weight, and routine exercise recommended. Assessment & Plan (10/11/2018 2:32 PM PACKAGING SALES REPRESENTATIVE): Well controlled on the current regimen. Avoidance of salt, proper body weight, and routine exercise recommended. Assessment & Plan (07/10/2018 11:55 AM CDT): Continue irbesartan 300 mg daily but increase amlodipine to 10 mg daily. Side effects discussed and she should call back if any develop. Assessment & Plan (11/17/2017 9:45 AM PACKAGING SALES REPRESENTATIVE): Not well controlled today. Increase irbesartan 300 [...] visit. Assessment & Plan (12/10/2020 9:23 AM PACKAGING SALES REPRESENTATIVE): Patient is asymptomatic on current dose of levothyroxine and TSH free T4 are normal and we will repeat levels before next visit. Assessment & Plan (10/02/2020 4:05 PM PACKAGING SALES REPRESENTATIVE): Patient is asymptomatic on current dose of levothyroxine and TSH free T4 are normal and we will repeat levels before next visit. Assessment & Plan (06/09/2020 9:28 AM CDT): Patient is asymptomatic on current dose of levothyroxine and TSH free T4 are normal and we will repeat levels before next visit. Assessment & Plan (10/15/2019 6:07 PM PACKAGING SALES REPRESENTATIVE): Patient is asymptomatic on current dose of levothyroxine and TSH free T4 are normal and we will repeat levels before next visit. Assessment & Plan (05/13/2019 8:29 PM CDT): Patient is asymptomatic on current dose of levothyroxine and TSH free T4 are normal and we will repeat levels before next visit. Assessment & Plan (10/11/2018 2:31 PM PACKAGING SALES REPRESENTATIVE): Patient is asymptomatic on current dose of levothyroxine and TSH free T4 are normal and we will repeat levels before next visit. Assessment & Plan (11/17/2017 9:43 AM PACKAGING SALES REPRESENTATIVE): Patient is asymptomatic on current dose of [...] and medications. The ASCVD Risk score (Alexandria DK, et [...] current management The ASCVD Risk score (Alexandria PORTER, et [...] months. Assessment & Plan (12/10/2020 9:26 AM PACKAGING SALES REPRESENTATIVE): Patient was not fasting accounting for her elevated triglyceride level. Well controlled on current therapy and will check a lipid panel and LFTs in 6 months. Assessment & Plan (06/09/2020 9:28 AM CDT): Well controlled on current therapy and will check a lipid panel and LFTs in 6 months. Assessment & Plan (10/15/2019 6:08 PM PACKAGING SALES REPRESENTATIVE): Well controlled on current therapy and will check a lipid panel and LFTs in 6 months. Assessment & Plan (05/13/2019 8:29 PM CDT): Well controlled on current therapy and will check a lipid panel and LFTs in 6 months. Assessment & Plan (10/11/2018 2:31 PM PACKAGING SALES REPRESENTATIVE): Well controlled on current therapy and will check a lipid panel and LFTs in 6 months. Assessment & Plan (11/17/2017 9:43 AM PACKAGING SALES REPRESENTATIVE): Well controlled on current therapy and will [...] visit. Assessment & Plan (12/10/2020 9:22 AM PACKAGING SALES REPRESENTATIVE): Continue current supplementation and check level in 1 year. Assessment & Plan (06/09/2020 9:27 AM CDT): Continue supplementation check levels before next visit. Assessment & Plan (10/15/2019 6:07 PM PACKAGING SALES REPRESENTATIVE): Continue current supplementation and check level in 1 year. Assessment & Plan (10/11/2018 2:31 PM PACKAGING SALES REPRESENTATIVE): Continue current supplementation and check level in 1 year. Assessment & Plan (11/17/2017 9:43 AM PACKAGING SALES REPRESENTATIVE): Continue current supplementation and check level in [...] I have asked her to ask her fiberglass boat parts finisher to take over management of her Trelegy [...] I have asked her to ask her fiberglass boat parts finisher to take over management of her Trelegy, albuterol and nebulizer inhalers as well as supplemental oxygen on her upcoming appointment in few weeks Assessment & Plan (09/20/2023 2:30 PM CDT): Continue Trelegy daily and use albuterol as needed. Continue oxygen supplementation with exertion Assessment & Plan (03/15/2023 1:37 PM CDT): Continue current medication regimen and supplemental oxygen and follow up with her fiberglass boat parts finisher as they direct Assessment & Plan (08/26/2022 10:55 AM CDT): Continue Trelegy daily and albuterol as needed and oxygen supplementation follow-up with her fiberglass boat parts finisher as they direct. Assessment & Plan (02/24/2022 9:02 AM CDT): Continue her Trelegy daily and albuterol as needed and oxygen supplementation and follow-up with fiberglass boat parts finisher as they direct. Assessment & Plan (06/23/2021 11:37 AM CDT): Continue current medications and oxygen follow-up with her fiberglass boat parts finisher as they direct. Assessment & Plan (12/10/2020 9:24 AM PACKAGING SALES REPRESENTATIVE): Continue Trelegy and use ProAir p.r.n.. Continue oxygen continuously. Follow-up with her new fiberglass boat parts finisher as they direct. Assessment & Plan (11/07/2020 5:22 PM PACKAGING SALES REPRESENTATIVE): Continue Trelegy daily. Use nebulizer 4 times a day. Pulmonary referral placed. Home oxygen cannot be arranged until Tuesday unfortunately. Assessment & Plan (10/20/2020 2:53 PM PACKAGING SALES REPRESENTATIVE): Patient requires a nebulizer at home to help with her sudden bronchospasms and shortness of breath. Prescription given. Continue Trelegy. Referral to pulmonary if no improvement. Assessment & Plan (10/02/2020 4:05 PM PACKAGING SALES REPRESENTATIVE): Change Anoro to Trelegy. Use albuterol p.r.n.. She reports occasional oxygen levels of 85% when ambulating. Recommended 6 minutes ambulatory pulse oximetry testing she currently declines. Call back if oxygen levels do not improve. Assessment & Plan (06/09/2020 9:28 AM CDT): Stable on her Anoro and uses albuterol as needed. Assessment & Plan (10/15/2019 6:08 PM PACKAGING SALES REPRESENTATIVE): Well controlled on Anoro and should use [...] illness Assessment & Plan (10/11/2018 2:31 PM PACKAGING SALES REPRESENTATIVE): Add Anoro daily. Warned of side effects. Use ProAir p.r.n.. Assessment & Plan (07/10/2018 11:55 AM CDT): Patient declines discussion of inhalers. If no improvement by next visit would recommend Anoro. Assessment & Plan (11/17/2017 9:43 AM PACKAGING SALES REPRESENTATIVE): Asymptomatic currently. Assessment & Plan (05/19/2017 4:07 PM CDT): Stable without medication. History of pulmonary embolus (PE) Assessment & Plan (03/20/2024 12:42 PM CDT): - hx of blood clot PE/DVT after knee replacement surgery - was on eliquis for 6 months - none since then Assessment & Plan (10/11/2018 2:32 PM PACKAGING SALES REPRESENTATIVE): Continue Eliquis until mid November 2017. Assessment [...] (05/05/2018): Added automatically from request for surgery [id number] Allergic rhinitis 05/19/2017 03/20/2024 Assessment & Plan (10/11/2018 2:32 PM PACKAGING SALES REPRESENTATIVE): Patel abbott Assessment & Plan (11/17/2017 9:44 AM PACKAGING SALES REPRESENTATIVE): No complaints today. Aftercare following left kne e joint replacement surgery 05/19/2017 03/20/2024 Assessment & Plan (05/19/2017 4:11 PM CDT): We discussed a comprehensive list of medical conditions and proposed recommendations for each. We discussed the importance of increased exercise, fall prevention, proper nutrition, and suggested joining [facility] to accomplish most of these goals. Patient [...] 022 Assessment & Plan (12/10/2020 9:24 AM PACKAGING SALES REPRESENTATIVE): Timed get up and go test normal. Assessment & Plan (10/15/2019 6:08 PM PACKAGING SALES REPRESENTATIVE): Timed get up and go test normal. Assessment & Plan (10/11/2018 2:34 PM PACKAGING SALES REPRESENTATIVE): Timed get up and go test normal. Assessment & Plan (05/19/2017 4:11 PM CDT): No need for intervention. Gastroesophageal reflux disease 05/11/2016 03/20/2024 Assessment & Plan (10/15/2019 6:08 PM PACKAGING SALES REPRESENTATIVE): Well controlled without medication. Assessment & Plan (10/11/2018 2:32 PM PACKAGING SALES REPRESENTATIVE): Well controlled without medication. Assessment & Plan (11/17/2017 9:44 AM PACKAGING SALES REPRESENTATIVE): Well controlled without medication. Assessment & Plan (05/19/2017 4:08 PM CDT): Well controlled without medication. Acute respiratory failure with hypoxia 03/20/2024 Normocytic anemia 03/20/2024 Fever 06/08/2018 Venous thromboembolism 03/20 Iron deficiency anemia 03/20 Overview (10/11/2018): Hemoglobin and Iron studies normalized without supplement following surgery complicated by pulmonary embolism. Uncontrolled hypertension Encounters Date Type Department Care Team Description 02/04/2025 11:15 AM CDT Office Visit [facility] Primary Care at [address] [address] Iam Yañez MD Pre-op evaluation (Primary Dx); Low bone mass; Morbid obesity with BMI of 40.0-44.9, adult (HCC); MOLLY on CPAP; Coronary artery calcification seen on CT scan; Benign hypertension; Chronic respiratory failure with hypoxia (HCC); Mixed hyperlipidemia; Impaired fasting glucose; Acquired hypothyroidism 01/30/2025 Telephone [facility] Primary Care at [address] [address] Iam Yañez MD Referral Request (Dermatology and Pulmonology ) 01/30/2025 Telephone [facility] Primary Care at [address] [address] Iam Yañez MD Medical Question/Miscellaneous 01/29/2025 8:50 AM CDT Lab [address] [address] Acquired hypothyroidism; Mixed hyperlipidemia; Impaired fasting glucose; Benign hypertension 01/29/2025 Results Follow-Up [facility] at [address] [address] Iam Yañez MD Thyroid Function [place], Lipid panel, Hemoglobin A1c, Additional followed-up results: 4 01/28/2025 Telephone [facility] Primary Care at [address] [address] Iam Yañez MD from Last 3 Months Immunizations Immunization Administration Dates Next Due Influenza, [...] (Arexvy) 11/03/2023 Tdap 12/06/2019,10/20/2009 ZOSTER LIVE 08/29/2014 Surgical History Surgery Date Site/Laterality Comments OTHER SURGICAL HISTORY 11/21/1999 - 11/20/2000 Breast Implants Removed OTHER SURGICAL HISTORY 11/21/1994 - 11/20/1995 Rt Meniscal Knee Repair OTHER SURGICAL HISTORY 11/21/2003 - 11/20/2004 Lft Meniscal Knee Repair OTHER SURGICAL HISTORY 11/21/2003 - 11/20/2004 Lumbar Back Surgery OTHER SURGICAL HISTORY 11/21/1999 - 11/20/2000 Surgery on Saliva Gland FOOT SURGERY 11/21/1989 - 11/20/1990 Foot Surgery TUBAL LIGATION 11/21/1976 - 11/20/1977 Bilateral tubal ligation APPENDECTOMY 11/21/1976 - 11/20/1977 Appendectomy OTHER SURGICAL HISTORY 03-Podiatry: Dr May OTHER SURGICAL HISTORY Left Knee Tricompartmental OA, meniscal tear: MRI 01/30; surgery scheduled KNEE ARTHROSCOPY Arthroscopy knee BACK SURGERY Back surgery OTHER SURGICAL HISTORY 11/21/2012 - 11/20/2013 R shoulder surgery : [facility] - Dr Baptiste SHOULDER ARTHROSCOPY 11/21/2012 - 11/20/2013 Right Arthroscopy shoulder OTHER SURGICAL HISTORY 02-Orthopedist: now Dr Baptiste OTHER SURGICAL HISTORY 11/21/2012 - 11/20/2013 Rotator cuff tear (right): Rotator cuff repair BREAST SURGERY implants removed TOTAL KNEE ARTHROPLASTY 05/21/2017 - 06/20/2017 Left complicated by dvt/pe AUGMENTATION MAMMAPLASTY pt had implants [id number] yrs ago COLONOSCOPY 02/04/2014 Medical History Medical History Date Comments Depression Depression Hyperlipidemia Hyperlipidemia Hx 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 Hx Other Medical DERM Hx Other Medical -Podiatry Hx Other Medical Left Knee Trico mpartmental OA, meniscal tear Gout Gout Hypertension Hypertension Hx Other Medical breast implant removal Disorder of thyroid Thyroid dise ase Hx Other Medical chest pain Hx Other Medical 12/14/2012 R shoulder surg eula Hx Other Medical -Orthopedist Hx Other Medical 2012 Rotator cuff te ar (right) Hx Other Medical R forearm skin cancer excised 06/2013 dr leslye Meehan Other Medical Skin cancer - L eft Forearm Cryotherapy 04/2015, dr Meehan Other Medical emphysema; Comm ents: MADDY 03/01/2017 - Hypothyroidism Cancer (HCC) skin cancer Sleep apnea Family History Medical History Relation Name Comments Heart attack Brother Myocardial infa rction; Coronary artery disease Father CABG ; Other Father Asbestosis; Dec eased Heart attack Father's Brother Myocardial infarction; Breast cancer Mother Cancer, breast ; /Cancer, breast; Lung cancer Mother Cancer -lung; D eceased/Cancer, lung; Cause of : Cancer, lung Uterine cancer Mother Cancer -uteri ne; /uterine cancer; Colon cancer Mother's Sister 1 Cancer, co ray; Thyroid cancer Mother's Sister 2 Cancer, thyroid; Thyroid cancer Mother's Sister 3 thyroid cancer; Cancer Other 1 Family history of Cancer; Diabetes Other 2 Family history of Diabetes mellitus; Heart disease Other 3 Family history of Heart disease; Hypertension Other 4 Family history of Hypertension; Relation Name Status Comments Brother Father Alive Father's Brother Mother Mother's Sister 1 Mother's Sister 2 Mother's Sister 3 Other 1 Other 2 Other 3 Other 4 Social History Tobacco Use Types Packs/Day Years [...] on file Legal Sex Female 11:49 PM PACKAGING SALES REPRESENTATIVE Gender Identity Not on file Sexual Orientation Not on file Obstetrics History Para Term AB IAB SAB Ectopic Multiple Livin g Live Births 2 2 2 Date Outcome GA Total Labor Labor/2nd/3rd Weight Sex Type Anes PTL Sheree A1 A5 Name Clin Term Term Last Filed Vital Signs Vital Sign Reading [...] Description 05/29/2025 10:00 AM CDT Hospital Encounter [address] [address] Mariusz Rosenberg DO [address] [place] [address] 05/29/2025 10:00 AM CDT - 05/29/2025 10:30 AM CDT Surgery [address] [address] Mariusz Rosenberg DO [address] [address] COLONOSCOPY Scheduled Procedures Name Priority Associated Diagnoses Date/Ti me COLONOSCOPY Family history of colon cancer History of colonic polyps Encounter for screening colonoscopy 05/29/2025 10:00 AM CDT Health Maintenance Due Date Last Done Comments Zoster Vaccine (2 of 3) 10/24/2014 08/29/2014 Covid-19 Vaccine (4 - 2023-2 5 season) 2024 04/21/2022, 03/21/2022, 02/07/2022, Additional history exists Well Visit 65+ 08/08/2025 08/08/2024, 02/20, 03/15/2023, Additional history exists Depression Screening 02/04/2026 02/04/2025, 08/08/2024, 04/10/2024, Additional history exists Fall Risk Assessment 02/04/2026 02/04/2025, 08/08/2024, 04/10/2024, Additional history exists Osteoporosis Screening-Bone Density Scan 10/22/2026 10/22/2024, 06/16/2016, 06/16/2016 DTaP/Tdap/Td Vaccine (3 - Td or Tdap) 12/06/2029 12/06/2019, 10/20/2009 Pneumococcal vaccine 65+ Completed 014, 04/25/2014, 04/25/2014 Hepatitis C Screening Completed 11/03/2017 Colon Cancer Screening-CT Colonography Discontinued 11/30/2019, 02/04/2014, 02/04/2014 Colon Cancer Screening-Colonoscopy Discontinued 11/30/2019, 02/04/2014, 02/04/2014 Colon Cancer Screening-DNA Stool Discontinued 11/30/2019, 02/04/2014, 02/04/2014 Colon Cancer Screening-FIT Discontinued 11/30, 02/04/2014, 02/04/2014 Colon Cancer Screening-FOBT Discontinued 11/21, 02/04/2014, 02/04/2014 Colon Cancer Screening-Sigmoidoscopy Discontinued 11/30/2019, 02/04/2014, 02/04/2014 Colorectal Cancer Screening Discontinued Hepatitis B Screening Completed 07/30/2024 Influenza Vaccine Completed 08/08/2024, , 08/26/2022, Additional history exists Breast Cancer Screening-Mammogram Discontinued 10/22/2024, 10/14/2023, 09/24/2022, Additional history exists Medical Devices Implanted Type Area Medical Records Administrator Device Identifier Shelf Expiration Date Model / Serial / Lot [employer] [id number] Attune Cementless Rotate Platform Knee 6 Baseplate Tibial - [id number] Implanted:Qty: 1 on 05/30/2018 by Constantino Baptiste MD at [facility] Left: Knee [employer] [id number] 05/20/2027 [id number] / / [id number] [employer] [id number] Attune Cruciate Retain Cementless Knee Left 5 Component Femoral - [id number] Implanted:Qty: 1 on 05/30/2018 by Constantino Baptiste MD at [facility] Left: Knee [employer] 11/20/2027 [id number] / / [id number] [employer] 3322-020 Cmw 2 Fast Set Cement 20gm Bone Sterile - [id number] Implanted:Qty: 1 on 05/30/2018 by Constantino Baptiste MD at [facility] Left: Knee [employer] 08/20/2020 [id number] / / [id number] [employer] [id number] Attune 35mm Cemented Medialize Knee Dome Patellar Aox Sterile - [id number] Implanted:Qty: 1 on 05/30/2018 by Constantino Baptiste MD at [facility] Left: Knee [employer] 03/20/2023 [id number] / / [id number] [employer] [id number] Attune 5mm Cruciate Retaining Rotate Platform Knee 5 Insert - [id number] Implanted:Qty: 1 on 05/30/2018 by Constantino Baptiste MD at [facility] Left: Knee [employer] 12/21/2022 [id number] / / [id number] Procedures Procedure Name Priority Date/Time Associated Diagnosis [...] Read Routine (OP Routine) 10/22/2024 10:18 AM PACKAGING SALES REPRESENTATIVE Postmenopausal SCREENING MAMMOGRAM BILATERAL W ASHU Schedule Routine, Read Routine (OP Routine) 10/22/2024 10:02 AM PACKAGING SALES REPRESENTATIVE Screening mammogram for breast cancer COLONOSCOPY 11/30/2019 7:49 AM PACKAGING SALES REPRESENTATIVE HEPATITIS C AB REFLEX RNA QUANT PCR Routine 11/03/2017 3:28 PM PACKAGING SALES REPRESENTATIVE from Last 3 Months or Most Recently [...] of Race in Diagnosing Kidney Disease, JASN 2020). The CKD-EPI equation should not be used for patients with unstable renal function and has not been validated in children and those over 70. Current interpretive data was last reviewed 2021. Blood 01/29/2025 8:55 AM CDT 01/29/2025 9:20 AM CDT us Iam Yañez MD LAB BLOOD ORDERABLES Fi nal Result [facility] ([place]) 1 [facility] Department [place] [address] * (ABNORMAL) Differential, auto (01/29/2025 8:55 AM CDT) Neutrophil abs 3.9 1.5 - 6.5 K/cumm Imm gran abs 0.0 0.0 - 0.1 K/cumm [facility] ([place]) Lymphocyte abs 1.8 0.8 - 3.3 K/cumm [facility] ([place]) Monocyte abs 0.9(H) 0.2 - 0.8 K/cumm [facility] ([place]) Eosinophil abs 0.3 0.0 - 0.5 K/cumm [facility] ([place]) Basophil abs 0.1 0.0 - 0.1 K/cumm [facility] ([place]) Neutrophil pct 56.5 % [facility] ([place]) Comment: Interpretive Data Percent cell count reference [...] revised on 2018. Basophil pct 0.7 % [facility] ([place]) Comment: Interpretive Data Percent cell count reference ranges are not reported, since discordance with absolute values may lead to misinterpretation of CBC data. Current Interpretive Data was last revised on 2018. Blood 01/29/2025 8:55 AM CDT 01/29/2025 9:20 AM CDT Iam Yañez MD LAB BLOOD ORDERABLES Fi nal Result Performing Organization Address City/[facility]/ZIP Co de Phone Number ERICK [facility] ([place]) 1 [facility] [place] [address] * Thyroid Function [place] (01/29/2025 8:55 AM CDT) TSH 2.56 0.30 - 4.20 mcIUnit/mL Blood 01/29/2025 8:55 AM CDT 01/29/2025 9:20 AM CDT Iam Yañez MD LAB BLOOD ORDERABLES Fi nal Result Performing Organization Address City/[facility]/ZIP Co de Phone Number ERICK [facility] ([place]) 1 [facility] [place] [address] * CBC with auto differential (01/29/2025 8:55 AM CDT) WBC 6.9 3.8 - 9.9 K/cumm Hgb 14.0 11.9 - 15.5 g/dL [facility] ([place]) Hct 42.7 35.6 - 45.5 % [facility] ([place]) Plt 283 150 - 400 K/cumm [facility] ([place]) MPV 10.6 9.1 - 12.3 fL [facility] ([place]) RBC 4.71 3.90 - 5.20 M/cumm [facility] ([place]) MCV 90.7 81.3 - 96.4 fL [facility] ([place]) MCH 29.7 27.1 - 33.3 pg [facility] ([place]) MCHC 32.8 32.3 - 35.7 g/dL [facility] ([place]) RDW CV 13.9 11.1 - 14.9 % [facility] ([place]) RDW SD 45.9 35.7 - 48.1 fL [facility] ([place]) NRBC abs 0.00 0.00 - 0.01 K/cumm [facility] ([place]) Blood 01/29/2025 8:55 AM CDT 01/29/2025 9:20 AM CDT Iam Yañez MD LAB BLOOD ORDERABLES Fi nal Result Performing Organization Address City/[facility]/ZIP Co de Phone Number [facility] ([place]) 1 [facility] [place] [address] * Hemoglobin A1c (01/29/2025 8:55 AM CDT) Hgb A1C 5.6 4.0 - 5.6 % Estimated Average Glucose 114 mg/dL [facility] ([place]) Comment: The ADA recommends reporting an estimated Average Glucose (eAG) with all Hemoglobin A1c results using the equation derived from a study of 507 normal and diabetic adults. Minority populations were underrepresented and children were not included. (Diabetes Care 31:4076-1733, 2008). The eAG is not equivalent to a fasting glucose. Blood 01/29/2025 8:55 AM CDT 01/29/2025 9:20 AM CDT Iam Yañez MD LAB BLOOD ORDERABLES Fi nal Result Performing Organization Address City/[facility]/ZIP Co de Phone Number [facility] ([place]) 1 [facility] [place] [address] * (ABNORMAL) Lipid panel (01/29/2025 8:55 AM [...] on 2018. HDL 35(L) >=40 mg/dL ERICK [facility] ([place]) Comment: Interpretive Data Ages < or [...] 2018. LDL, calculated 67 <=129 mg/dL [facility] ([place]) Comment: Interpretive Data [...] NCEP Expert Panel. Circulation 2004;110:227 3. Gustabo Duran et al. SALEEM Cardiol. 2020 March 21;5(5):540-548. doi: 10.1001/jamacardio.2020.0013 Current Interpretive Data was last revised on 2024. Non-HDL Cholesterol 91 mg/dL ERICK [facility]) Comment: Interpretive Data Ages [...] last revised on 2018. Chol/HDL ratio 4 ANDREW [facility] ([place]) Blood 01/29/2025 8:55 AM CDT 01/29/2025 9:20 AM CDT us Iam Yañez MD LAB BLOOD ORDERABLES Fi nal Result [facility] [place] 1 [facility] Department [place] [address] * Comprehensive metabolic panel (01/29/2025 8:55 AM CDT) Sodium 139 135 - 145 mmol/L Potassium, pl 4.7 3.3 - 4.9 mmol/L [facility] ([place]) Chloride 104 97 - 110 mmol/L [facility] ([place]) CO2 26 22 - 32 mmol/L [facility] ([place]) Anion gap 9 2 - 15 mmol/L [facility] ([place]) BUN 21 6 - 25 mg/dL [facility] ([place]) Creatinine 1.07 0.60 - 1.10 mg/dL [facility] ([place]) Glucose 106 70 - 199 mg/dL [facility] ([place]) Comment: Interpretive Data Fasting glucose [...] MD LAB BLOOD ORDERABLES Fi nal Result [facility] 1 [facility] Department [place] [address] * Dexa Axial Skeleton Bone Density 1 or 2 Site (10/22/2024 10:18 AM PACKAGING SALES REPRESENTATIVE) Anatomical Region Laterality Modality Body N/A Other 10/22/2024 5:58 PM PACKAGING SALES REPRESENTATIVE Narrative 10/22/2024 5:59 PM PACKAGING SALES REPRESENTATIVE EXAM DESCRIPTION: DEXA AXIAL SKELETON BONE DENSITY 1 OR MORE SITES REASON FOR STUDY: 74 y/o year old F with given history of: postmenopausal Screening. Medical Records Administrator/Model: CUPS (S/N [id number]) CLINICAL INFORMATION: Current height: 63 inches Maximum [...] Tank Alexander M.D. MF: VERITO Report ID: [id number] Reading Location: [place] [address] Procedure Note Tank Alexander MD - 10/22/2024 EXAM DESCRIPTION: DEXA AXIAL SKELETON BONE DENSITY 1 OR MORE SITES REASON FOR STUDY: 74 y/o year old F with given history of:postmenopausal Screening. Medical Records Administrator/Model: GTx SL (S/N [id number]) CLINICAL INFORMATION: Current height: 63 inches Maximum [...] Tank Alexander M.D. MF: VERITO Report ID: [id number] Reading Location: [place] [address] Iam Yañez MD [facility] [place] DXA PROCEDURES Erica l Result * Screening Mammogram Bilateral W Ashu (10/22/2024 10:02 AM PACKAGING SALES REPRESENTATIVE) Anatomical Region Laterality Modality Breast Bilateral Mammography 10/22/2024 10:2 7 AM PACKAGING SALES REPRESENTATIVE Impressions 10/22/2024 10:27 AM PACKAGING SALES REPRESENTATIVE No evidence of malignancy in either breast. FINAL ASSESSMENT: BI-RADS Category 1: Negative. RECOMMENDATION: Recommend return for annual screening mammogram in 12 months. Electronically signed by: Tra Whitt M.D. Narrative 10/22/2024 10:27 AM PACKAGING SALES REPRESENTATIVE EXAMINATION: BILATERAL SCREENING MAMMOGRAM COMPARISON: 10/14/2023, 09/24/2022, 09/18/2021, 09/17/2020 TECHNIQUE: Full-field 2D and digital breast tomosynthesis (DBT) images were obtained. CAD was utilized. BREAST PARENCHYMAL COMPOSITION: The breasts are almost entirely fatty. FINDINGS: No suspicious masses, suspicious calcifications, or other suspicious findings are seen in either breast. There is no new suspicious finding in either breast on mammogram. Andrews Arango MD IMG MAMMO PROCEDURES Final R esult * COLONOSCOPY (11/30/2019 7:49 AM PACKAGING SALES REPRESENTATIVE) Anatomical Region Laterality Modality Other Narrative Procedure Note José Miguel Cornelius MD - 11/30/2019 7:49 AM CST [facility] Patient Name: Mckinley Fabian Procedure Date: 11/30/2019 7:49 AM Date of : 1950 Admit Type: Outpatient Age: 69 Gender: Female Attending MD: José Miguel oCrnelius M.D. Room: [facility] ENDOSCOPY ROOM 2 Note Status: Finalized Patient [...] The scopewas passed under direct vision. The [id number] was introduced through the anus andadvanced to [...] 7:49 AM Procedure Code(s): --- Professional --- 33449, Colonoscopy, flexible; with removal of tumor(s), polyp(s), or other lesion(s) by hot biopsy forceps Diagnosis Code(s): --- Professional --- Z80.0, Family history of malignant neoplasm of digestive organs D12.5, Benign neoplasm of sigmoid colon K64.9, Unspecified hemorrhoids Z86.010, Personal history of colonic polyps CPT copyright 2017 [employer]. All rights reserved. The codes documented in this report are preliminary and upon wallboard worker reviewmay be revised to meet current compliance requirements. Recognized by the [employer] for promoting quality in endoscopy us José Miguel Cornelius MD ENDOSCOPY PROCEDURES Final Re sult * Hepatitis C Antibody Reflex Hepatitis C RNA Quantitative PCR (11/03/2017 3:28 PM PACKAGING SALES REPRESENTATIVE) Hep C Ab Negative Negative ERICK MARTINEZ Blood specimen (specimen) 11/03/2017 3:28 PM PACKAGING SALES REPRESENTATIVE 11/03/2017 3:28 PM PACKAGING SALES REPRESENTATIVE Narrative ERICK MARTINEZ - 11/03/2017 4:14 PM PACKAGING SALES REPRESENTATIVE us Andrews Arango MD LAB MICROBIOLOGY - GENERAL O RDERABLES Final Result ERICK [address] [address] Department [place] [address] from Last 3 Months or Most Recently Relevant to Health Maintenance Insurance [facility] [email or web address] HEALTHCARE [facility] Advance Directives For more information, please contact: [phone] * Full Code (Latest Code Status on [...] 2:15 PM 05/31/2018 7:52 PM Care Teams Hide Inspector And Sorter Relationship Specialty Start Date End Date Iam Yañez MD [address] [facility] [address] [place] [address] PCP - General Family Medicine 03/20/24 Constantino Baptiste MD [address] [place] [address] [address] N[address] [place] [address] Surgeon Orthopedic Surgery 06/03/18 Jakob Link MD [address] [place] [address] [address] N[address] [place] [address] Consulting Physician Neurology 06/03/18 [place] [address] [address] [facility] [address] [place] [address] Consulting Physician Pulmonary Disease 03/20/24 [place] [address] [place] [address] Referring Physician Dermatology 03/20/24
[2025-04-16 14:42] VITALS: BP 120/101; PULSE 87; RESP 20; TEMP 36.9; O2SAT 96
--- NOTE | 2025-04-16 14:43 | ED.ABDPAIN ---
HPI - Abdominal Pain General Chief Complaint: Urogenital-Female Stated Complaint: back and abdominal pain Time Seen by Provider: 04/16/25 14:43 Source: patient Mode of arrival: ambulatory Limitations: no limitations History of Present Illness HPI narrative: Mesha is a 75-year-old female patient presenting to the clinic today with complaints of generalized abdominal pain and low back pain x1 days. She reports has frequency, urgency, and burning yesterday- took 1 bactrim and states her urine symptoms went away. Pain is worse with standing up. States that sharp in her back and dull pain in the abdomen. Rating pain currently an 7-8/10. States when she stands up at the 10/10. She denies any fevers, chills, body aches. Last bowel movement was this morning. Denies any history constipation, IBS, Crohn's, ulcerative colitis, or diverticulosis/diverticulitis. No nausea or vomiting. No blood in her stool. History of gallbladder attack 40 years ago. States that the pain feels a lot like that. No injury to her back or abdomen. Denies saddle anesthesia or loss of bowel or bladder. Related Data Home Medications ?Medication ?Instructions ?Recorded ?Confirmed ?Last Taken ?Type amlodipine 10 mg tablet 10 mg PO DAILY 04/03/24 04/03/24 Unknown History atorvastatin 20 mg tablet 20 mg PO DAILY 04/03/24 04/03/24 Unknown History bupropion HCl 300 mg 24 hr tablet, 300 mg PO DAILY 04/03/24 04/03/24 Unknown History extended release fluticasone fur. 100 mcg-umeclid 1 inh inhalation DAILY 04/03/24 04/03/24 Unknown History 62.5 mcg-vilant 25 mcg inhalat.powder (Trelegy Ellipta) levothyroxine 75 mcg tablet 75 mcg PO DAILY 04/03/24 04/03/24 Unknown History losartan 100 mg tablet 100 mg PO DAILY 04/03/24 04/03/24 Unknown History Allergies Allergy/AdvReac Type Severity Reaction Status Date / Time No Known Allergies Allergy Verified 04/16/25 14:48 Review of Systems Review of Systems: Pertinent positives per HPI. Patient denies any fever, chills, rash, headache, visual changes, dizziness, cough, shortness of breath, chest pain, palpitations, nausea, vomiting, diarrhea, constipation. PMFSH Comments At the time of my signature, I reviewed and agree with the nursing past medical, surgical, social, and family history. There is no relevant family history pertinent to the patient complaint. Exam Narrative: General: Well-developed, well nourished, in no apparent distress. Head: Normocephalic, atraumatic. Cardio: Regular rate and rhythm, s1 and s2 normal, no murmur appreciated. Resp: Clear to auscultation bilaterally, no rhonchi, rales, wheezing or rubs. Abdomen: Soft, pliable, bowel sounds present in all quadrants, mild abdomen tender to palpation, no organomegly, no CVAT tenderness. Course Course Emergency Course: Portions of this record may have been created with voice recognition software. Level of Care: Express Care Visit Vital Signs Vital signs: Vital Signs Temperature 36.9 C 04/16/25 14:42 Pulse Rate 87 04/16/25 14:42 Respiratory Rate 20 04/16/25 14:42 Blood Pressure 120/101 H 04/16/25 14:42 Pulse Oximetry 96 04/16/25 14:42 Oxygen Delivery Room Air 04/16/25 14:42 Temperature 36.9 C 04/16/25 14:42 Pulse Rate 87 04/16/25 14:42 Respiratory Rate 20 04/16/25 14:42 Blood Pressure 120/101 H 04/16/25 14:42 Pulse Oximetry 96 04/16/25 14:42 Oxygen Delivery Room Air 04/16/25 14:42 Vital signs reviewed Transfer Transfered to: [facility] Transportation: Other (private car) Transfer rationale: Abdominal pain and low back pain Accepting physician: Dr. Bang Transfer comments: Private car MDM - Abdominal Pain MDM Narrative Medical decision making narrative: At the time of visit patient is resting comfortably on the exam table. Patient appears to be nontoxic. Labs: Urinalysis negative for any sign of infection, blood, or protein Plan: Patient is having diffuse abdominal pain and lower back pain. Recommend transfer to the ER for further evaluation. Patient agrees to transfer. Patient would like to go to [facility] ER. Vital signs are stable. Contacted Shania CHEN at [facility] and she accepts patient on behalf of Dr. Bang. Patient to go via private car Differential Diagnosis Differential diagnosis: Likely abdominal pain, acute appendicitis, calculus of kidney, constipation, diverticulitis, endometriosis, gastroenteritis, pancreatitis, small bowel obstruction and other (UTI, pyelonephritis, nephrolithiasis, ureterolithiasis) Lab Data Labs: Lab Results 04/16/25 Range/Units 14:50 POC Urine Color Yellow POC Urine Clarity Clear POC Urine pH 6.0 POC Ur Specif [place] 1.025 POC Urine Protein Negative (Negative) POC Ur Glucose (UA) Negative (Negative) POC Urine Ketones Negative (Negative) POC Urine Blood Negative (Negative) POC Urine Nitrite Negative (Negative) POC Urine Bilirubin Negative (Negative) POC Urine Urobilinogen 0.2 POC U Leukocyte Esteras Negative (Negative) Discharge Plan Discharge Clinical Impression: Abdominal pain Qualifiers: Abdominal location: generalized Qualified Code(s): R10.84 - Generalized abdominal pain Low back pain Qualifiers: Chronicity: acute Back pain laterality: bilateral Sciatica presence: without sciatica Qualified Code(s): M54.50 - Low back pain, unspecified Patient Disposition: Acute Care Hospital Condition: Stable Patient Language: Turkmen Prescriptions: No Action losartan 100 mg tablet 100 mg PO DAILY levothyroxine 75 mcg tablet 75 mcg PO DAILY bupropion HCl 300 mg tablet extended release 24 hr 300 mg PO DAILY atorvastatin 20 mg tablet 20 mg PO DAILY amlodipine 10 mg tablet 10 mg PO DAILY Trelegy Ellipta 100-62.5-25 mcg blister with device 1 inh INHALATION DAILY Follow-up/Referrals: Alejandra,MD Trevon [Primary Care Provider] - Time of Disposition: 15:15 Quality NIHSS Nursing Documentation ED NIHSS nursing documentation: reviewed/agree
[2025-04-16 14:56] LABS: EDUAAPPEAR Clear; EDUABILI Negative (Negative); EDUABLOOD Negative (Negative); EDUACOLOR1 Yellow; EDUAGLUCOSE Negative (Negative); EDUAKETONE Negative (Negative); EDUALEUKO Negative (Negative); EDUANITRATE Negative (Negative); EDUAPROTEIN Negative (Negative); EDUASPGRAVITY 1.025; EDUAUROBILI 0.2
== END 2025-04-16 15:13 | disposition short-term general hospital (02) ==
PROVIDERS: Emergency Provider Nurse Practitioner Family; PCP Family Medicine
DX: R10.84 Generalized abdominal pain (principal); M54.50 Low back pain, unspecified; I10 Essential (primary) hypertension; E78.00 Pure hypercholesterolemia, unspecified; J44.9 Chronic obstructive pulmonary disease, unspecified; E03.9 Hypothyroidism, unspecified; Z86.711 Personal history of pulmonary embolism; Z96.652 Presence of left artificial knee joint
CPT/HCPCS: 81003; 99212; G0463